=== PATIENT | male | born 1950 | race Caucasian/White ===

== ENCOUNTER 2017-06-12 00:52 | Day surgery (SDC) | payer MEDICARE ==
[~2017-06-12 00:52] MED LIST: ACET325 PO; ALBU90OI; Aspir 8181 MG PO; BENADRYL25 MG PO; FEXPSEER PO; FLUT44OIA; INDO50 PO; LEFL20 PO; LEVSOD50 PO; LISI20 PO; Metformin HCl850 MG PO; Remicade100 MG IV; SOLU-MEDRO40 MG/1 ML IJ; STOOL SOFTENER1 EAC1 PO
== END 2017-06-12 10:44 | disposition home or self-care (01) ==
LOC: ATC 00:52
DX: M45.0 Ankylosing spondylitis of multiple sites in spine (principal); M19.90 Unspecified osteoarthritis, unspecified site; E66.9 Obesity, unspecified; Z88.0 Allergy status to penicillin; Z79.899 Other long term (current) drug therapy
CPT/HCPCS: 96413; 96415; J7050; Q5102-ZB

== ENCOUNTER 2017-08-07 00:16 | Day surgery (SDC) | payer MEDICARE | END 2017-08-07 10:51 | disposition home or self-care (01) | LOC: ATC 00:16 | DX: M45.0 Ankylosing spondylitis of multiple sites in spine (principal); E11.9 Type 2 diabetes mellitus without complications | CPT/HCPCS: 96413; 96415; J7050; Q0163; Q5102-ZB ==

== ENCOUNTER 2017-10-02 00:11 | Day surgery (SDC) | payer MEDICARE ==
[2017-10-02] MEDS ORDERED: INFLECTRA100 MG IV (08:16)
== END 2017-10-02 10:46 | disposition home or self-care (01) ==
LOC: ATC 00:11
DX: M45.0 Ankylosing spondylitis of multiple sites in spine (principal); E11.9 Type 2 diabetes mellitus without complications; E66.9 Obesity, unspecified
CPT/HCPCS: 96413; 96415; J7050; Q5103

== ENCOUNTER 2017-11-27 00:02 | Day surgery (SDC) | payer MEDICARE ==
[~2017-11-27 00:02] MED LIST changes: +INFLECTRA100 MG IV
== END 2017-11-27 11:14 | disposition home or self-care (01) ==
LOC: ATC 00:02
DX: M45.0 Ankylosing spondylitis of multiple sites in spine (principal); E78.5 Hyperlipidemia, unspecified
CPT/HCPCS: J1745; J7050; Q5103

== ENCOUNTER 2018-01-22 07:41 | Day surgery (SDC) | payer MEDICARE | END 2018-01-22 10:12 | disposition home or self-care (01) | LOC: ATC 07:41 | DX: M45.0 Ankylosing spondylitis of multiple sites in spine (principal) | CPT/HCPCS: 96413; 96415; J7050; Q5103 ==

== ENCOUNTER 2018-05-14 01:23 | Day surgery (SDC) | payer MEDICARE | END 2018-05-14 10:22 | disposition home or self-care (01) | LOC: ATC 01:23 | DX: M45.0 Ankylosing spondylitis of multiple sites in spine (principal) | CPT/HCPCS: 96413; J7050; Q5103 ==

== ENCOUNTER 2018-07-12 00:18 | Day surgery (SDC) | payer MEDICARE ==
--- NOTE | 2018-07-12 14:29 | NUR ---
PT REPORTS HE DOES NOT WANT PREMEDS TODAY. REPORTS HE IS HAVING ALLERGY TEST TOMORROW TO RULE OUT NO PCN ALLERGY. WILL UPDATE HIS ALLERGIES NEXT VISIT UPON REPORT OF ALLERGY TEST.
== END 2018-07-12 16:57 | disposition home or self-care (01) ==
LOC: ATC 00:18
DX: M45.0 Ankylosing spondylitis of multiple sites in spine (principal); Z79.1 Long term (current) use of non-steroidal anti-inflammatories (NSAID); M19.90 Unspecified osteoarthritis, unspecified site; E66.9 Obesity, unspecified; J45.909 Unspecified asthma, uncomplicated; D89.9 Disorder involving the immune mechanism, unspecified
CPT/HCPCS: J7050; Q5103

== ENCOUNTER 2018-09-03 00:06 | Day surgery (SDC) | payer MEDICARE | END 2018-09-03 10:28 | disposition home or self-care (01) | LOC: ATC 00:06 | DX: M45.0 Ankylosing spondylitis of multiple sites in spine (principal); M19.90 Unspecified osteoarthritis, unspecified site; E66.9 Obesity, unspecified; Z88.0 Allergy status to penicillin | CPT/HCPCS: 96413; 96415; J7050; Q5103 ==

== ENCOUNTER → 2018-10-06 | Outpatient (CLI) | payer MEDICARE ==
[~2018-10-06] MED LIST changes: +CEPH500 PO; +Norco 7.5-3251 EACH PO
== END | disposition home or self-care (01) ==
LOC: LAB SHORT 08:00 → LAB 08:00 → LAB FUT 09-18 13:45
DX: J47.9 Bronchiectasis, uncomplicated (principal); R05 Cough
CPT/HCPCS: 87070; 87077; 87186; 87205

== ENCOUNTER → 2018-10-07 | Outpatient (CLI) | payer MEDICARE | END | disposition home or self-care (01) | LOC: LAB SHORT 07:20 → LAB 07:20 → EDSTATUS 09-18 08:35 → LAB FUT 09-18 08:35 | DX: J47.9 Bronchiectasis, uncomplicated (principal); R05 Cough | CPT/HCPCS: 87102 ==

== ENCOUNTER 2018-10-29 00:13 | Day surgery (SDC) | payer MEDICARE | END 2018-10-29 11:05 | disposition home or self-care (01) | LOC: ATC 00:13 | DX: M45.0 Ankylosing spondylitis of multiple sites in spine (principal); J45.909 Unspecified asthma, uncomplicated; E66.9 Obesity, unspecified; Z88.0 Allergy status to penicillin; Z79.1 Long term (current) use of non-steroidal anti-inflammatories (NSAID) | CPT/HCPCS: 96413; 96415; A9270; J7050; Q5103 ==

== ENCOUNTER 2019-01-14 02:14 | Day surgery (SDC) | payer MEDICARE | END 2019-01-14 10:55 | disposition home or self-care (01) | LOC: ATC 02:14 | DX: M45.0 Ankylosing spondylitis of multiple sites in spine (principal) | CPT/HCPCS: 96413; 96415; A9270; J7050; Q0163; Q5103 ==

== ENCOUNTER 2019-03-11 00:27 | Day surgery (SDC) | payer MEDICARE | END 2019-03-11 10:27 | disposition home or self-care (01) | LOC: ATC 00:27 | DX: M45.2 Ankylosing spondylitis of cervical region (principal); R91.1 Solitary pulmonary nodule | CPT/HCPCS: 96413; 96415; A9270; J7050; Q0163; Q5103 ==

== ENCOUNTER 2019-05-20 00:49 | Day surgery (SDC) | payer MEDICARE ==
--- NOTE | 2019-05-20 08:44 | NUR ---
PT DECLINED PRE MEDS
== END 2019-05-20 23:24 | disposition home or self-care (01) ==
LOC: ATC 00:49
DX: M45.9 Ankylosing spondylitis of unspecified sites in spine (principal); I10 Essential (primary) hypertension; E11.9 Type 2 diabetes mellitus without complications; J43.9 Emphysema, unspecified; E61.1 Iron deficiency; G47.33 Obstructive sleep apnea (adult) (pediatric); E03.9 Hypothyroidism, unspecified; Z79.51 Long term (current) use of inhaled steroids; Z79.84 Long term (current) use of oral hypoglycemic drugs; Z79.899 Other long term (current) drug therapy; Z88.0 Allergy status to penicillin
CPT/HCPCS: 96413; 96415; J7050; Q5103

== ENCOUNTER 2019-07-15 01:22 | Day surgery (SDC) | payer MEDICARE ==
[~2019-07-15 01:22] MED LIST changes: +Allegra-D 24 H1 EACH PO; -FEXPSEER PO
[2019-07-15] MEDS ORDERED: ALBU2.5V5 INH (09:11)
== END 2019-07-15 10:48 | disposition home or self-care (01) ==
LOC: ATC 01:22
DX: M45.2 Ankylosing spondylitis of cervical region (principal); Z79.84 Long term (current) use of oral hypoglycemic drugs; Z79.899 Other long term (current) drug therapy
CPT/HCPCS: 96413; 96415; J7050; Q5103

== ENCOUNTER 2019-09-09 00:06 | Day surgery (SDC) | payer MEDICARE ==
[~2019-09-09 00:06] MED LIST changes: +ALBU2.5V5 INH
== END 2019-09-09 10:35 | disposition home or self-care (01) ==
LOC: ATC 00:06
DX: M45.0 Ankylosing spondylitis of multiple sites in spine (principal); E11.9 Type 2 diabetes mellitus without complications; M19.012 Primary osteoarthritis, left shoulder; Z79.899 Other long term (current) drug therapy
CPT/HCPCS: 96413; 96415; A9270; J7050; Q0163; Q5103

== ENCOUNTER 2020-01-11 00:35 | Day surgery (SDC) | payer MEDICARE ==
[~2020-01-11 00:35] MED LIST changes: +ALLEGRA ALLERGY60 MG PO; -Allegra-D 24 H1 EACH PO; +EUTHYROX50 MCG PO; -LEVSOD50 PO
== END 2020-01-11 15:55 | disposition home or self-care (01) ==
LOC: ATC 00:35
DX: M45.0 Ankylosing spondylitis of multiple sites in spine (principal); E66.9 Obesity, unspecified; E78.5 Hyperlipidemia, unspecified; M19.012 Primary osteoarthritis, left shoulder; H20.9 Unspecified iridocyclitis; Z79.899 Other long term (current) drug therapy; Z88.6 Allergy status to analgesic agent
CPT/HCPCS: J7050; Q0163; Q5103

== ENCOUNTER 2020-03-12 00:33 | Day surgery (SDC) | payer MEDICARE ==
--- NOTE | 2020-03-12 12:03 | NUR ---
1100 PT AGREED TO HAVE STUDENT NURSE HELP PROVIDE HIS CARE TODAY.
== END 2020-03-12 11:01 | disposition home or self-care (01) ==
LOC: ATC 00:33
DX: M45.0 Ankylosing spondylitis of multiple sites in spine (principal); E66.9 Obesity, unspecified; E78.5 Hyperlipidemia, unspecified; M19.012 Primary osteoarthritis, left shoulder; Z79.1 Long term (current) use of non-steroidal anti-inflammatories (NSAID)
CPT/HCPCS: A9270; J7050; Q0163; Q5103

== ENCOUNTER 2020-05-07 00:13 | Day surgery (SDC) | payer MEDICARE | END 2020-05-07 11:18 | disposition home or self-care (01) | LOC: ATC 00:13 | DX: M45.0 Ankylosing spondylitis of multiple sites in spine (principal); M19.90 Unspecified osteoarthritis, unspecified site; E78.5 Hyperlipidemia, unspecified; E66.9 Obesity, unspecified; Z79.1 Long term (current) use of non-steroidal anti-inflammatories (NSAID); Z79.899 Other long term (current) drug therapy; Z88.0 Allergy status to penicillin; Z79.84 Long term (current) use of oral hypoglycemic drugs | CPT/HCPCS: J7050; Q5103 ==

== ENCOUNTER 2020-07-03 01:44 | Emergency (ER) | payer MEDICARE ==
[~2020-07-03] VITALS: Ht 177.8 cm; Wt 104.3 kg
[2020-07-03] MEDS ORDERED: ASCO500 PO (01:59)
[2020-07-03] MEDS ORDERED: METHOTREXATE2.5 M2 PO (02:00)
[2020-07-03] MEDS ORDERED: MELO7.5 PO (02:01)
[2020-07-03] MEDS ORDERED: METFORMIN ER1000 M2 PO (02:01)
[2020-07-03] MEDS ORDERED: FOLI1 PO (02:01)
[2020-07-03] MEDS ORDERED: VITAMIN D325 MC3 PO (02:02)
[2020-07-03] MEDS ORDERED: Prinivil10 MG PO (02:03)
[2020-07-03] MEDS ORDERED: PRAV20 PO (02:03)
[2020-07-03] MEDS ORDERED: PREG50 PO (02:04)
[2020-07-03] MEDS ORDERED: MONT10T PO (02:04)
[2020-07-03] MEDS ORDERED: MAGNESIUM250 MG PO (02:05)
[2020-07-03] MEDS ORDERED: Micro-K8 MEQ (02:07)
[2020-07-03] MEDS ORDERED: ALBU90OI INH (02:08)
[2020-07-03] MEDS ORDERED: FLOVENT HFA12 GM INH (02:08)
[2020-07-03] MEDS ORDERED: XYZAL5 MG PO (02:10)
[2020-07-03 02:13] LABS: BASOPHILS ABSOLUTE AUTO 0.08 K/mm3 (0.00-0.23); BASOPHILS PERCENT AUTO 1 % (0-2); EOSINOPHILS ABSOLUTE AUTO 0.18 K/mm3 (0.00-0.68); EOSINOPHILS PERCENT AUTO 1 % (0-6); Hematocrit 44.6 % (37.0-53.0); Hemoglobin 15.2 g/dL (13.5-17.5); IMMATURE GRAN ABSOLUTE AUTO 0.09 K/mm3 (0.00-0.10); IMMATURE GRAN PERCENT AUTO 1 % (0-1); LYMPHOCYTES ABSOLUTE AUTO 4.15 K/mm3 (0.84-5.20); LYMPHOCYTES PERCENT AUTO 29 % (21-46); MONOCYTES ABSOLUTE AUTO 1.75 K/mm3 (0.16-1.47); MONOCYTES PERCENT AUTO 12 % (4-13); Mean Corpuscular HGB 32.1 pg (26.0-34.0); Mean Corpuscular HGB Conc 34.1 g/dL (31.5-36.5); Mean Corpuscular Volume 94 fL (80-100); Mean Platelet Volume 10.6 fL (9.1-12.4); NEUTROPHILS ABSOLUTE AUTO 8.16 K/mm3 (1.96-9.15); NEUTROPHILS PERCENT AUTO 57 % (41-73); Platelet Count 226 K/mm3 (150-400); RDW Coefficient Variation 12.8 % (11.7-14.2); RDW Standard Deviation 43.7 fL (35.1-46.3); Red Blood Cell Count 4.73 M/mm3 (4.30-5.90); White Blood Cell Count 14.41 K/mm3 (4.00-11.30)
[2020-07-03 02:26] LABS: Alanine Aminotransfer (ALT/SGP 30 U/L (12-78); Albumin, Blood 3.6 g/dL (3.4-5.0); Albumin/Globulin Ratio 1.1 (0.8-1.8); Alk Phos 91 U/L (50-136); Anion Gap 11 mmol/L (6-16); Aspartate Aminotrans (AST/SGOT 15 U/L (12-37); Bilirubin, Total 0.4 mg/dL (0.1-1.0); Blood Urea Nitrogen 19 mg/dL (8-24); Bun/Creatinine Ratio 22.1 (12.0-20.0); CO2, Blood 23 mmol/L (21-32); Calcium, Blood 9.2 mg/dL (8.5-10.1); Chloride, Blood 105 mmol/L (98-108); Creatinine, Blood 0.86 mg/dL (0.60-1.20); Ethanol (Alcohol), Blood, Med <3 mg/dL; Globulin, Blood 3.3 g/dL (2.2-4.0); Glomerular Filtration Rate >60 (60-); Glucose, Blood 154 mg/dL (70-99); Potassium, Blood 4.2 mmol/L (3.5-5.5); Sodium, Blood 139 mmol/L (136-145); Total Protein, Blood 6.9 g/dL (6.4-8.2)
[2020-07-03 03:35] LABS: Source, Urine Clean Catch
[2020-07-03 03:37] LABS: Appearance, Urine Clear (Clear); Bilirubin, Urine Neg (Neg); Blood, Urine Neg (Neg); Color, Urine Yellow (P-Yellow); Glucose Qualitative, Urine Neg (Neg); Ketones, Urine 1+ (Neg); Leukocyte Esterase, Urine Neg (Neg); Nitrite, Urine Neg (Neg); Protein, Urine Neg (Neg); Urobilinogen, Urine NORM (Normal)
[2020-07-03 03:49] LABS: U Amphetamine Screen Not Detected; U Barbituate Screen Not Detected; U Benzodiazapine Screen Not Detected; U Buprenorphine Screen Not Detected; U Cannabinoids Screen DETECTED; U Cocaine Screen Not Detected; U Methadone Screen Not Detected; U Methamphetamine Screen Not Detected; U Opiates Screen Not Detected; U Oxycodone Screen Not Detected; U Phencyclidine Screen Not Detected; U Propoxyphene Screen Not Detected
== END 2020-07-03 04:19 | disposition home or self-care (01) ==
LOC: ER 01:44
PROVIDERS: Student in an Organized Health Care Education/Training Program
DX: R56.9 Unspecified convulsions (principal); Z79.899 Other long term (current) drug therapy; Z79.84 Long term (current) use of oral hypoglycemic drugs
CPT/HCPCS: 36415; 70450; 80053; 81003; 82947; 85025; 93005; 93010; 99285-25; G0480

== ENCOUNTER 2020-07-06 00:31 | Day surgery (SDC) | payer MEDICARE ==
[~2020-07-06 00:31] MED LIST changes: +ALBU90OI INH; +ASCO500 PO; +FLOVENT HFA12 GM INH; +FOLI1 PO; +MAGNESIUM250 MG PO; +MELO7.5 PO; +METFORMIN ER1000 M2 PO; +METHOTREXATE2.5 M2 PO; +MONT10T PO; +Micro-K8 MEQ; +PRAV20 PO; +PREG50 PO; +Prinivil10 MG PO; +VITAMIN D325 MC3 PO; +XYZAL5 MG PO
== END 2020-07-06 10:32 | disposition home or self-care (01) ==
LOC: ATC 00:31
DX: M45.0 Ankylosing spondylitis of multiple sites in spine (principal); E78.5 Hyperlipidemia, unspecified; D84.9 Immunodeficiency, unspecified; M19.012 Primary osteoarthritis, left shoulder; E66.9 Obesity, unspecified; Z88.0 Allergy status to penicillin
CPT/HCPCS: 96413; 96415; J7050; Q5103

== ENCOUNTER 2020-08-31 00:15 | Day surgery (SDC) | payer MEDICARE ==
[2020-08-31] MEDS ORDERED: ROWEEPRA PO (09:34)
== END 2020-08-31 10:43 | disposition home or self-care (01) ==
LOC: ATC 00:15
DX: M45.0 Ankylosing spondylitis of multiple sites in spine (principal); E78.5 Hyperlipidemia, unspecified; E66.9 Obesity, unspecified; M19.012 Primary osteoarthritis, left shoulder; Z79.899 Other long term (current) drug therapy; Z88.0 Allergy status to penicillin
CPT/HCPCS: J7050; Q5103

== ENCOUNTER 2021-03-18 04:32 | Day surgery (SDC) | payer MEDICARE ==
[~2021-03-18 04:32] MED LIST changes: +ROWEEPRA PO
== END 2021-03-18 10:47 | disposition home or self-care (01) ==
LOC: ATC 04:32
DX: M45.0 Ankylosing spondylitis of multiple sites in spine (principal); E78.5 Hyperlipidemia, unspecified
CPT/HCPCS: 96413; 96415; A9270; J7050; Q5103

== ENCOUNTER 2021-05-13 01:29 | Day surgery (SDC) | payer MEDICARE ==
--- NOTE | 2021-05-13 08:00 | NUR ---
PT DECLINES PRE MEDS TODAY.
== END 2021-05-13 10:41 | disposition home or self-care (01) ==
LOC: ATC 01:29
DX: M45.0 Ankylosing spondylitis of multiple sites in spine (principal); E78.5 Hyperlipidemia, unspecified
CPT/HCPCS: J7050; Q5103

== ENCOUNTER 2021-07-16 05:34 | Day surgery (SDC) | payer MEDICARE ==
--- NOTE | 2021-07-16 08:55 | NUR ---
PT REFUSED PRE-MEDICATIONS.
== END 2021-07-16 11:46 | disposition home or self-care (01) ==
LOC: ATC 05:34
DX: M45.0 Ankylosing spondylitis of multiple sites in spine (principal); Z88.0 Allergy status to penicillin
CPT/HCPCS: J7050; Q5103

== ENCOUNTER 2021-09-10 01:21 | Day surgery (SDC) | payer MEDICARE ==
[~2021-09-10] VITALS: Wt 119.9 kg
== END 2021-09-10 11:15 | disposition home or self-care (01) ==
LOC: ATC 01:21
DX: M45.9 Ankylosing spondylitis of unspecified sites in spine (principal); E78.5 Hyperlipidemia, unspecified; D84.9 Immunodeficiency, unspecified; Z79.899 Other long term (current) drug therapy
CPT/HCPCS: J7050; Q5103

== ENCOUNTER 2021-09-28 09:13 | Emergency (ER) | payer MEDICARE ==
[~2021-09-28] VITALS: Ht 177.8 cm; Wt 113.4 kg
[2021-09-28] MEDS ORDERED: RENFLEXIS100 M1 (09:33)
[2021-09-28] MEDS ORDERED: ACYC800 PO (09:39)
[2021-09-28] MEDS ORDERED: Prednisone20 MG PO (09:39)
[2021-09-28] MEDS ORDERED: HYDR1TAB94 PO (09:39)
== END 2021-09-28 09:47 | disposition home or self-care (01) ==
LOC: ER 09:13
DX: B02.9 Zoster without complications (principal); Z79.899 Other long term (current) drug therapy; Z79.84 Long term (current) use of oral hypoglycemic drugs; Z79.52 Long term (current) use of systemic steroids
CPT/HCPCS: 99282

== ENCOUNTER 2021-11-05 05:13 | Day surgery (SDC) | payer MEDICARE ==
[~2021-11-05] VITALS: Wt 119.8 kg
[~2021-11-05 05:13] MED LIST changes: +ACYC800 PO; +HYDR1TAB94 PO; +Prednisone20 MG PO; +RENFLEXIS100 M1
[2021-11-05] MEDS ORDERED: INFLECTRA100 MG IV (09:08)
== END 2021-11-05 10:17 | disposition home or self-care (01) ==
LOC: ATC 05:13
DX: M45.9 Ankylosing spondylitis of unspecified sites in spine (principal); E78.5 Hyperlipidemia, unspecified; Z88.0 Allergy status to penicillin
CPT/HCPCS: J7050; Q5103

== ENCOUNTER 2022-03-05 02:28 | Day surgery (SDC) | payer MEDICARE | END 2022-03-05 10:25 | disposition home or self-care (01) | LOC: ATC 02:28 | DX: M45.9 Ankylosing spondylitis of unspecified sites in spine (principal); E11.9 Type 2 diabetes mellitus without complications; Z88.0 Allergy status to penicillin | CPT/HCPCS: 96413; 96415; J7050; Q5103 ==

== ENCOUNTER 2022-07-03 01:30 | Day surgery (SDC) | payer MEDICARE ==
[~2022-07-03] VITALS: Wt 119.9 kg
== END 2022-07-03 10:06 | disposition home or self-care (01) ==
LOC: ATC 01:30
DX: M45.9 Ankylosing spondylitis of unspecified sites in spine (principal); E11.9 Type 2 diabetes mellitus without complications
CPT/HCPCS: 96413; 96415; J7050; Q5103

== ENCOUNTER 2022-08-28 00:58 | Day surgery (SDC) | payer MEDICARE ==
[2022-08-28 07:59] VITALS: BP 163/87
== END 2022-08-28 10:29 | disposition home or self-care (01) ==
LOC: ATC 00:58
DX: M45.0 Ankylosing spondylitis of multiple sites in spine (principal)
CPT/HCPCS: 96413; 96415; J7050; Q5103

== ENCOUNTER 2022-10-07 17:04 | Emergency (ER) | payer MEDICARE ==
[~2022-10-07] VITALS: Ht 172.7 cm; Wt 113.8 kg
[~2022-10-07 17:04] MED LIST changes: +LEVE500 PO
[2022-10-07 17:48] LABS: Hematocrit 46.7 % (37.0-53.0); Hemoglobin 16.1 g/dL (13.5-17.5); Mean Corpuscular HGB Conc 34.5 g/dL (31.5-36.5); Mean Corpuscular Volume 96 fL (80-100); Mean Platelet Volume 10.9 fL (9.1-12.4); Platelet Count 266 K/mm3 (150-400); RDW Standard Deviation 45.1 fL (35.1-46.3); Red Blood Cell Count 4.88 M/mm3 (4.30-5.90); White Blood Cell Count 14.04 K/mm3 (4.00-11.30)
[2022-10-07 18:08] LABS: BASOPHILS PERCENT MAN 0 % (0-2); EOSINOPHILS PERCENT MAN 0 % (0-6); LYMPHOCYTES % ATYPICAL MANUAL 3 % (0-0); LYMPHOCYTES ABSOLUTE MAN 4.49 K/mm3 (0.84-5.20); LYMPHOCYTES PERCENT MAN 29 % (21-46); MONOCYTES PERCENT MAN 10 % (4-13); NEUTROPHILS ABSOLUTE MAN 8.14 K/mm3 (1.96-9.15); SEG NEUTROPHILS PERCENT MAN 58 % (41-73); TOTAL CELLS COUNTED 100
[2022-10-07 18:22] LABS: Albumin, Blood 3.9 g/dL (3.4-5.0); Albumin/Globulin Ratio 1.1 (0.8-1.8); Bilirubin, Total 0.6 mg/dL (0.1-1.0); Bun/Creatinine Ratio 22.6 (12.0-20.0); Calcium, Blood 9.8 mg/dL (8.5-10.1); Creatinine, Blood 0.93 mg/dL (0.60-1.20); Globulin, Blood 3.6 g/dL (2.2-4.0); Potassium, Blood 4.5 mmol/L (3.5-5.5); Total Protein, Blood 7.5 g/dL (6.4-8.2)
[2022-10-07 22:45] VITALS: BP 129/78
== END 2022-10-07 22:55 | disposition home or self-care (01) ==
LOC: ER 17:04
PROVIDERS: Physician Assistant
DX: G45.9 Transient cerebral ischemic attack, unspecified (principal); I10 Essential (primary) hypertension; G40.909 Epilepsy, unspecified, not intractable, without status epilepticus; E03.9 Hypothyroidism, unspecified; Z79.899 Other long term (current) drug therapy
CPT/HCPCS: 70450; 70496; 70498; 80053; 85025; Q9967

== ENCOUNTER 2022-10-23 03:01 | Day surgery (SDC) | payer MEDICARE ==
[~2022-10-23] VITALS: Wt 119.3 kg
[2022-10-23 07:58] VITALS: BP 141/81
== END 2022-10-23 10:22 | disposition home or self-care (01) ==
LOC: ATC 03:01
DX: M45.0 Ankylosing spondylitis of multiple sites in spine (principal); E11.9 Type 2 diabetes mellitus without complications
CPT/HCPCS: 96413; 96415; J7050; Q5103

== ENCOUNTER 2023-01-31 15:26 | Emergency (ER) | payer MEDICARE ==
[~2023-01-31] VITALS: Ht 177.8 cm; Wt 111.6 kg
[~2023-01-31 15:26] MED LIST changes: +TAMS.4ER PO
[2023-01-31 16:19] LABS: Albumin, Blood 3.7 g/dL (3.4-5.0); Albumin/Globulin Ratio 1.1 (0.8-1.8); Bilirubin, Total 0.4 mg/dL (0.1-1.0); Calcium, Blood 9.8 mg/dL (8.5-10.1); Creatinine, Blood 0.86 mg/dL (0.60-1.20); Globulin, Blood 3.5 g/dL (2.2-4.0); Potassium, Blood 4.4 mmol/L (3.5-5.5); Total Protein, Blood 7.2 g/dL (6.4-8.2)
[2023-01-31 16:21] LABS: BASOPHILS ABSOLUTE AUTO 0.06 K/mm3 (0.00-0.23); BASOPHILS PERCENT AUTO 1 % (0-2); EOSINOPHILS ABSOLUTE AUTO 0.11 K/mm3 (0.00-0.68); EOSINOPHILS PERCENT AUTO 1 % (0-6); Hemoglobin 15.3 g/dL (13.5-17.5); IMMATURE GRAN ABSOLUTE AUTO 0.04 K/mm3 (0.00-0.10); IMMATURE GRAN PERCENT AUTO 0 % (0-1); LYMPHOCYTES ABSOLUTE AUTO 2.74 K/mm3 (0.84-5.20); LYMPHOCYTES PERCENT AUTO 22 % (21-46); MONOCYTES ABSOLUTE AUTO 1.48 K/mm3 (0.16-1.47); MONOCYTES PERCENT AUTO 12 % (4-13); Mean Corpuscular HGB 32.4 pg (26.0-34.0); Mean Corpuscular Volume 95 fL (80-100); NEUTROPHILS ABSOLUTE AUTO 8.31 K/mm3 (1.96-9.15); NEUTROPHILS PERCENT AUTO 65 % (41-73); Platelet Count 255 K/mm3 (150-400); Red Blood Cell Count 4.72 M/mm3 (4.30-5.90); White Blood Cell Count 12.74 K/mm3 (4.00-11.30)
[2023-01-31 16:38] LABS: D-Dimer, Quantitative 0.34 mg/L FEU (0.00-0.52); International Normalized Ratio 1.03; Prothrombin Time Results 10.8 Sec (9.7-11.5)
[2023-01-31] MEDS ORDERED: RENFLEXIS100 M1 (16:41)
[2023-01-31] MEDS ORDERED: BREO ELLIPTA 11 EAC1 INH (16:42)
[2023-01-31 18:59] VITALS: BP 108/70
== END 2023-01-31 19:04 | disposition home or self-care (01) ==
LOC: ER 15:26
PROVIDERS: Physician Assistant
DX: R00.2 Palpitations (principal); R00.0 Tachycardia, unspecified; I11.0 Hypertensive heart disease with heart failure; I50.30 Unspecified diastolic (congestive) heart failure; J81.1 Chronic pulmonary edema; D72.829 Elevated white blood cell count, unspecified; I25.10 Atherosclerotic heart disease of native coronary artery without angina pectoris; E03.9 Hypothyroidism, unspecified; Z79.890 Hormone replacement therapy; Z79.899 Other long term (current) drug therapy
CPT/HCPCS: 71046; 80053; 83735; 83880; 84443; 84484; 85025; 85379; 85610; 93005; 93010; 96374; 99285-25; J1940

== ENCOUNTER 2023-02-17 02:37 | Day surgery (SDC) | payer MEDICARE ==
[~2023-02-17 02:37] MED LIST changes: +BREO ELLIPTA 11 EAC1 INH
[2023-02-17 07:59] VITALS: BP 139/78
--- NOTE | 2023-02-17 10:42 | NUR ---
STOP TIME 1038
== END 2023-02-17 10:38 | disposition home or self-care (01) ==
LOC: ATC 02:37
DX: M45.0 Ankylosing spondylitis of multiple sites in spine (principal)
CPT/HCPCS: 96413; 96415; J7050; Q5103

== ENCOUNTER 2023-04-13 04:11 | Day surgery (SDC) | payer MEDICARE ==
[2023-04-13 08:07] VITALS: BP 145/85
--- NOTE | 2023-04-13 08:47 | NUR ---
PT STATES HE DOESN'T TAKE PRE MEDS.
== END 2023-04-13 10:44 | disposition home or self-care (01) ==
LOC: ATC 04:11
DX: M45.0 Ankylosing spondylitis of multiple sites in spine (principal)
CPT/HCPCS: 96413; 96415; J7050; Q5103

== ENCOUNTER 2023-06-10 02:46 | Day surgery (SDC) | payer MEDICARE ==
[2023-06-10 07:55] VITALS: BP 167/81
== END 2023-06-10 10:29 | disposition home or self-care (01) ==
LOC: ATC 02:46
DX: M45.0 Ankylosing spondylitis of multiple sites in spine (principal); J47.9 Bronchiectasis, uncomplicated; R56.9 Unspecified convulsions; H26.9 Unspecified cataract
CPT/HCPCS: 96413; 96415; J7050; Q5103

== ENCOUNTER 2024-02-08 00:28 | Emergency (ER) | payer MEDICARE ==
[~2024-02-08] VITALS: Ht 175.3 cm; Wt 90.7 kg
[~2024-02-08 00:28] MED LIST changes: +GLUCOPHAGE1000 M1 PO; +MAGNESIUM CITR125 MG PO; -MAGNESIUM250 MG PO; -METFORMIN ER1000 M2 PO; +VITAMIN D32000 UNI1 PO; -VITAMIN D325 MC3 PO
[2024-02-08 01:22] LABS: Source, Urine Foley catheter
[2024-02-08 01:24] LABS: BASOPHILS ABSOLUTE AUTO 0.05 K/mm3 (0.00-0.23); BASOPHILS PERCENT AUTO 0 % (0-2); EOSINOPHILS ABSOLUTE AUTO 0.01 K/mm3 (0.00-0.68); EOSINOPHILS PERCENT AUTO 0 % (0-6); Hematocrit 43.4 % (37.0-53.0); IMMATURE GRAN ABSOLUTE AUTO 0.12 K/mm3 (0.00-0.10); IMMATURE GRAN PERCENT AUTO 1 % (0-1); LYMPHOCYTES ABSOLUTE AUTO 1.41 K/mm3 (0.84-5.20); LYMPHOCYTES PERCENT AUTO 6 % (21-46); MONOCYTES ABSOLUTE AUTO 1.76 K/mm3 (0.16-1.47); MONOCYTES PERCENT AUTO 8 % (4-13); Mean Corpuscular HGB 32.8 pg (26.0-34.0); Mean Corpuscular HGB Conc 34.6 g/dL (31.5-36.5); Mean Corpuscular Volume 95 fL (80-100); Mean Platelet Volume 10.1 fL (9.1-12.4); NEUTROPHILS ABSOLUTE AUTO 19.29 K/mm3 (1.96-9.15); NEUTROPHILS PERCENT AUTO 85 % (41-73); Platelet Count 298 K/mm3 (150-400); RDW Coefficient Variation 13.2 % (11.7-14.2); Red Blood Cell Count 4.58 M/mm3 (4.30-5.90); White Blood Cell Count 22.64 K/mm3 (4.00-11.30)
[2024-02-08 01:26] LABS: Bilirubin, Urine Neg (Neg); Blood, Urine 1+ (Neg); Glucose Qualitative, Urine 1+ (Neg); Ketones, Urine 1+ (Neg); Leukocyte Esterase, Urine Neg (Neg); Nitrite, Urine Neg (Neg); Protein, Urine Neg (Neg); Specific Gravity, Urine 1.025 (1.003-1.022); Urobilinogen, Urine NORM (Normal)
[2024-02-08 01:36] LABS: Appearance, Urine Clear (Clear); Color, Urine Yellow (P-Yellow)
[2024-02-08 01:43] LABS: Albumin, Blood 3.7 g/dL (3.4-5.0); Albumin/Globulin Ratio 0.9 (0.8-1.8); Bilirubin, Total 0.8 mg/dL (0.1-1.0); Bun/Creatinine Ratio 28.1 (12.0-20.0); Calcium, Blood 10.2 mg/dL (8.5-10.1); Creatinine, Blood 0.71 mg/dL (0.60-1.20); Globulin, Blood 3.9 g/dL (2.2-4.0); Potassium, Blood 4.6 mmol/L (3.5-5.5); Total Protein, Blood 7.6 g/dL (6.4-8.2)
[2024-02-08 01:49] LABS: Bacteria Not Seen /hpf; Squamous Epithelial Cells Not Seen /hpf (Few); White Blood Cells, Urine Not Seen /hpf (0-5)
[2024-02-08] MEDS ORDERED: TAMS.4ER PO (03:51)
[2024-02-08 04:00] VITALS: BP 130/77
[2024-02-16] MEDS ORDERED: ROSUVASTATIN CA20 MG PO (11:07)
[2024-02-16] MEDS ORDERED: DOCU100 PO (11:14)
[2024-02-16] MEDS ORDERED: VITAMIN D350 MC3 PO (13:00)
[2024-02-16] MEDS ORDERED: PREG50 PO (13:10)
[2024-02-16] MEDS ORDERED: PYRI100 PO (13:11)
== END 2024-02-08 04:20 | disposition home or self-care (01) ==
LOC: ER 00:28
PROVIDERS: Emergency Medicine
DX: R33.9 Retention of urine, unspecified (principal); E03.9 Hypothyroidism, unspecified; I10 Essential (primary) hypertension; E78.5 Hyperlipidemia, unspecified; Z79.51 Long term (current) use of inhaled steroids; Z79.84 Long term (current) use of oral hypoglycemic drugs; Z79.899 Other long term (current) drug therapy
CPT/HCPCS: 51702; 51798; 80053; 81001; 85025; 99283-25

== ENCOUNTER 2024-02-15 04:28 | Emergency (ER) | payer MEDICARE ==
[~2024-02-15] VITALS: Ht 172.7 cm; Wt 108.9 kg
[2024-02-15 04:43] VITALS: BP 119/97
[2024-02-15 05:16] LABS: Source, Urine Foley catheter
[2024-02-15 05:32] LABS: Bilirubin, Urine Neg (Neg); Blood, Urine 5+ (Neg); Glucose Qualitative, Urine Neg (Neg); Ketones, Urine Neg (Neg); Leukocyte Esterase, Urine 1+ (Neg); Nitrite, Urine Pos (Neg); Protein, Urine 4+ (Neg); Specific Gravity, Urine 1.015 (1.003-1.022); Urobilinogen, Urine NORM (Normal)
[2024-02-15] MEDS ORDERED: Dexamethasone Sod Phos 10 MG/ML 1ML VIAL PO ONE (05:35)
[2024-02-15 05:36] LABS: Appearance, Urine Turbid (Clear); Color, Urine Red (P-Yellow); Red Blood Cells, Urine TNTC /hpf (0-2)
[2024-02-15 05:37] LABS: Bacteria Many /hpf; Squamous Epithelial Cells Not Seen /hpf (Few)
[2024-02-15] MEDS ORDERED: Cephalexin Monohydrate 250 MG/5 ML UD BTL PO ONE (05:40)
[2024-02-15] MEDS ORDERED: CEPH500 PO (05:51)
[2024-02-16] MEDS ORDERED: ROSUVASTATIN CA20 MG PO ×2 (11:07)
[2024-02-16] MEDS ORDERED: DOCU100 PO ×2 (11:14)
[2024-02-16] MEDS ORDERED: VITAMIN D350 MC3 PO ×2 (13:00)
[2024-02-16] MEDS ORDERED: PREG50 PO ×2 (13:10)
[2024-02-16] MEDS ORDERED: PYRI100 PO ×2 (13:11)
== END 2024-02-15 06:10 | disposition home or self-care (01) ==
LOC: ER 04:28
PROVIDERS: Student in an Organized Health Care Education/Training Program
DX: T83.091A Other mechanical complication of indwelling urethral catheter, initial encounter (principal); R34 Anuria and oliguria; Y84.6 Urinary catheterization as the cause of abnormal reaction of the patient, or of later complication, without mention of misadventure at the time of the procedure; N39.0 Urinary tract infection, site not specified; I10 Essential (primary) hypertension; E03.9 Hypothyroidism, unspecified; E78.5 Hyperlipidemia, unspecified; G40.909 Epilepsy, unspecified, not intractable, without status epilepticus; Z79.899 Other long term (current) drug therapy; Z79.890 Hormone replacement therapy; Z79.84 Long term (current) use of oral hypoglycemic drugs
CPT/HCPCS: 51702; 81001; 87077; 87086; 87186; 99283; A9270

== ENCOUNTER 2024-02-15 22:24 | Inpatient (IN) | payer MEDICARE ==
[~2024-02-15] VITALS: Ht 177.8 cm; Wt 106.6 kg
[2024-02-15 23:21] LABS: Hematocrit 42.2 % (37.0-53.0); Hemoglobin 14.4 g/dL (13.5-17.5); Mean Corpuscular HGB Conc 34.1 g/dL (31.5-36.5); Mean Corpuscular Volume 97 fL (80-100); Mean Platelet Volume 10.1 fL (9.1-12.4); Platelet Count 309 K/mm3 (150-400); RDW Coefficient Variation 13.2 % (11.7-14.2); RDW Standard Deviation 46.5 fL (35.1-46.3); Red Blood Cell Count 4.36 M/mm3 (4.30-5.90); White Blood Cell Count 35.12 K/mm3 (4.00-11.30)
[2024-02-15 23:49] LABS: BAND PERCENT MAN 8 % (0-8); BASOPHILS PERCENT MAN 0 % (0-2); EOSINOPHILS PERCENT MAN 0 % (0-6); LYMPHOCYTES PERCENT MAN 6 % (21-46); MONOCYTES ABSOLUTE MAN 3.16 K/mm3 (0.16-1.47); MONOCYTES PERCENT MAN 9 % (4-13); NEUTROPHILS ABSOLUTE MAN 29.85 K/mm3 (1.96-9.15); SEG NEUTROPHILS PERCENT MAN 77 % (41-73); TOTAL CELLS COUNTED 100
[2024-02-15 23:58] LABS: Albumin, Blood 3.5 g/dL (3.4-5.0); Albumin/Globulin Ratio 0.9 (0.8-1.8); Bun/Creatinine Ratio 23.7 (12.0-20.0); Calcium, Blood 9.7 mg/dL (8.5-10.1); Creatinine, Blood 0.93 mg/dL (0.60-1.20); Potassium, Blood 4.3 mmol/L (3.5-5.5); Total Protein, Blood 7.5 g/dL (6.4-8.2)
[2024-02-16] MEDS ORDERED: FentaNYL Citrate 50 MCG/ML 2 ML Injection IV ONE (00:20)
[2024-02-16 00:47] LABS: Source, Urine Foley catheter
[2024-02-16 00:53] LABS: Bilirubin, Urine Neg (Neg); Blood, Urine 4+ (Neg); Glucose Qualitative, Urine Neg (Neg); Ketones, Urine 1+ (Neg); Leukocyte Esterase, Urine Neg (Neg); Nitrite, Urine Neg (Neg); Protein, Urine 4+ (Neg); Urobilinogen, Urine NORM (Normal)
[2024-02-16 01:02] LABS: Appearance, Urine Bloody (Clear); Color, Urine Red (P-Yellow)
[2024-02-16 01:07] LABS: Bacteria Rare /hpf; Red Blood Cells, Urine TNTC /hpf (0-2); Squamous Epithelial Cells Not Seen /hpf (Few)
[2024-02-16 01:47] LABS: International Normalized Ratio 1.04; Prothrombin Time Results 11.1 Sec (9.7-11.5)
[2024-02-16] MEDS ORDERED: NS 1,000 ML IV SCH ×2 (02:40→05:00)
[2024-02-16] MEDS ORDERED: FLU VACC TS2024-25(6MOS UP)/PF 45 MCG/0.5 ML SYRINGE IM SCH (04:30)
[2024-02-16] MEDS ORDERED: Acetaminophen 325 MG TABLET PO PRN (04:30)
[2024-02-16 06:19] LABS: BASOPHILS ABSOLUTE AUTO 0.05 K/mm3 (0.00-0.23); BASOPHILS PERCENT AUTO 0 % (0-2); EOSINOPHILS PERCENT AUTO 0 % (0-6); Hematocrit 36.5 % (37.0-53.0); Hemoglobin 12.5 g/dL (13.5-17.5); IMMATURE GRAN PERCENT AUTO 1 % (0-1); LYMPHOCYTES ABSOLUTE AUTO 1.72 K/mm3 (0.84-5.20); LYMPHOCYTES PERCENT AUTO 6 % (21-46); MONOCYTES ABSOLUTE AUTO 2.54 K/mm3 (0.16-1.47); MONOCYTES PERCENT AUTO 8 % (4-13); Mean Corpuscular HGB Conc 34.2 g/dL (31.5-36.5); Mean Corpuscular Volume 96 fL (80-100); Mean Platelet Volume 9.9 fL (9.1-12.4); NEUTROPHILS ABSOLUTE AUTO 25.51 K/mm3 (1.96-9.15); NEUTROPHILS PERCENT AUTO 85 % (41-73); Platelet Count 261 K/mm3 (150-400); RDW Coefficient Variation 13.2 % (11.7-14.2); RDW Standard Deviation 46.5 fL (35.1-46.3); Red Blood Cell Count 3.79 M/mm3 (4.30-5.90); White Blood Cell Count 30.12 K/mm3 (4.00-11.30)
[2024-02-16 06:40] LABS: Bun/Creatinine Ratio 26.4 (12.0-20.0); Calcium, Blood 9.5 mg/dL (8.5-10.1); Creatinine, Blood 0.87 mg/dL (0.60-1.20); Potassium, Blood 4.3 mmol/L (3.5-5.5)
[2024-02-16 06:45] VITALS: BP 125/78
[2024-02-16 07:30] VITALS: BP 146/85
[2024-02-16] MEDS ORDERED: Insulin Human Lispro 100 Units/ML 3ML Syringe SC SCH (07:30)
[2024-02-16] MEDS ORDERED: CefTRIAXone Sodium 1,000 MG in NS 100 ML IV SCH (09:00)
--- NOTE | 2024-02-16 09:16 | NUR ---
RESIDENT AND MED STUDENT ROUNDED THIS AM. DISCUSSED CONCERNS WITH RESIDENT. NOTIFIED OF NEED FOR IV ABX. ASKED ABOUT CONTINUED IV FLUID ORDERS. ALSO DISCUSSED BLADDER DISCOMFORT, NEED FOR INTERMITTENT BLADDER IRRIGATION ORDER AND POSSIBLE CHEST XRAY. NOTIFIED THAT CATH WAS MANUALLY FLUSHED AT 0745. PER MED STUDENT SHE WILL DISCUSS THESE CONCERNS WITH THE MEDICAL TEAM AND ORDERS WILL BE PLACED.
[2024-02-16] MEDS ORDERED: Tamsulosin HCl 0.4 MG Cap PO SCH (11:00)
[2024-02-16] MEDS ORDERED: ROSUVASTATIN CA20 MG PO ×2 (11:07)
[2024-02-16] MEDS ORDERED: DOCU100 PO ×2 (11:14)
[2024-02-16] MEDS ORDERED: VITAMIN D350 MC3 PO ×2 (13:00)
[2024-02-16] MEDS ORDERED: PREG50 PO ×2 (13:10)
[2024-02-16] MEDS ORDERED: PYRI100 PO ×2 (13:11)
[2024-02-16] MEDS ORDERED: Calcium Carbonate 500 MG Tab Chew PO PRN (14:05)
[2024-02-16] MEDS ORDERED: Mometasone/Formoterol MDI 100/5 mcg 13 GM INH SCH (14:15)
[2024-02-16 16:29] VITALS: BP 131/81
[2024-02-16] MEDS ORDERED: Omeprazole 20 MG CapCR PO SCH (16:30)
--- NOTE | 2024-02-16 16:38 | NUR ---
NURSING PROGRESS NOTE PT REFUSED BREAKFAST TRAY C/O HEARTBURN. PT REFUSED LUNCH TRAY C/O HEARTBURN/NAUSEA. PT STATES HE TAKES 3 ANTACIDS AT HOME WHEN HE HAS HEARTBURN, SARA VAUGHAN OBTAINED ORDER FOR PRILOSEC AND ANTACIDS. PT REPORTS HEARTBURN IS BETTER 15 MINUTES AFTER TAKING ORAL ANTACIDS. PT IS STAND BY ASSIST FOR LINES AND TUBES.
[2024-02-16] MEDS ORDERED: MetFORMIN HCl 500 mg PO SCH (17:00)
--- NOTE | 2024-02-16 19:07 | NUR ---
SHIFT SUMMARY PT WITH CBI, BLOODY COLOR, FEW CLOTS. PT A&O X4. PT C/O HEARTBURN IN AM AND AFTER LUNCH. PT STATES HEARTBURN RESOLVED WITH ANTACID AND PRILOSEC. PT ON RA. INDEPENDENT AMBULATION WITH 1 ASSIST FOR LINES/TUBES. PT VOMITED 300 ML OF EMESIS AT 1300. PT SPOUSE AT BEDSIDE MOST OF DAY. PT REFUSED BREAKFAST AND LUNCH TRAYS D/T HEARTBURN, REFUSED DINNER TRAY BUT DID EAT APPLE SLICES. PT WITH NO STATED NEEDS AT THIS TIME. BED IN LOWEST POSITION WITH CALL LIGHT IN REACH. PT WITH PERSONAL CELL PHONE WITHIN REACH.
[2024-02-16 19:37] VITALS: BP 125/82
--- NOTE | 2024-02-16 20:00 | NUR ---
SHIFT SUMMARY PT HAD CONTINUOUS BLADDER IRRIGATION T/O THE DAY. URINE RANGED FROM LIGHT PINK TO DARK RED WITH CLOTS. PT REQUIRED MANUAL IRRIGATION X 3 THIS SHIFT TO REMOVE CLOTS. PT HAS DECLINED MEALS R/T ACID REFLUX, PRILOSEC AND TUMS GIVEN PRIOR TO DINNER PT STILL HAD MINIMAL INTAKE AT DINNER. PT HAS HAD BM'S X2. PT IS SBA FOR HELP WITH LINES AND TUBES IN THE ROOM. PT USES CALL LIGHT APPROPRIATELY. BEDSIDE REPORT GIVEN TO REGLA RUIZ.
[2024-02-16] MEDS ORDERED: Pregabalin 50 MG Capsule PO SCH (21:00)
[2024-02-16] MEDS ORDERED: Miconazole Nitrate 2% 85 GM PWD TOP SCH (21:00)
[2024-02-16] MEDS ORDERED: Montelukast Sodium 10 MG Tab PO SCH (21:00)
[2024-02-16] MEDS ORDERED: PyridOXINE HCL 50 MG TAB PO SCH (21:00)
[2024-02-16] MEDS ORDERED: Folic Acid 1 MG TAB PO SCH (21:00)
[2024-02-16] MEDS ORDERED: Rosuvastatin Calcium 10 MG Tab PO SCH (21:00)
[2024-02-16] MEDS ORDERED: LevETIRAcetam 500 MG Tab PO SCH (21:00)
[2024-02-17 04:33] VITALS: BP 136/95
[2024-02-17 05:08] LABS: BASOPHILS ABSOLUTE AUTO 0.06 K/mm3 (0.00-0.23); BASOPHILS PERCENT AUTO 0 % (0-2); EOSINOPHILS ABSOLUTE AUTO 0.07 K/mm3 (0.00-0.68); EOSINOPHILS PERCENT AUTO 0 % (0-6); Hematocrit 34.9 % (37.0-53.0); Hemoglobin 11.9 g/dL (13.5-17.5); IMMATURE GRAN ABSOLUTE AUTO 0.15 K/mm3 (0.00-0.10); IMMATURE GRAN PERCENT AUTO 1 % (0-1); LYMPHOCYTES ABSOLUTE AUTO 2.63 K/mm3 (0.84-5.20); LYMPHOCYTES PERCENT AUTO 13 % (21-46); MONOCYTES ABSOLUTE AUTO 1.65 K/mm3 (0.16-1.47); MONOCYTES PERCENT AUTO 8 % (4-13); Mean Corpuscular HGB Conc 34.1 g/dL (31.5-36.5); Mean Corpuscular Volume 97 fL (80-100); Mean Platelet Volume 10.2 fL (9.1-12.4); NEUTROPHILS ABSOLUTE AUTO 16.55 K/mm3 (1.96-9.15); NEUTROPHILS PERCENT AUTO 78 % (41-73); Platelet Count 272 K/mm3 (150-400); RDW Coefficient Variation 13.2 % (11.7-14.2); RDW Standard Deviation 46.4 fL (35.1-46.3); Red Blood Cell Count 3.61 M/mm3 (4.30-5.90); White Blood Cell Count 21.11 K/mm3 (4.00-11.30)
[2024-02-17 05:35] LABS: Bun/Creatinine Ratio 24.9 (12.0-20.0); Calcium, Blood 9.4 mg/dL (8.5-10.1); Creatinine, Blood 0.72 mg/dL (0.60-1.20); Potassium, Blood 4.1 mmol/L (3.5-5.5)
[2024-02-17] MEDS ORDERED: Levothyroxine Sodium 0.05 MG Tab PO SCH (06:00)
--- NOTE | 2024-02-17 06:46 | NUR ---
SHIFT SUMMARY S/P HEMATURIA c CONT BLADDER IRRIGATION. NO ACUTE CHANGES OVERNIGHT. VSS, SLIGHTLY TACHY c MOIST OCCASIONAL COUGH. TOLERATING DIET. PT USED 5 BAGS TOTAL FOR IRRIGATION OVERNIGHT. URINE REMAINS DARK RED c BLOD CLOTS. PT CALLS c DISCOMFORT FOR MANUAL IRRIGATION. PT REPORTS PAIN TOLERABLE, MEDICATED PER EMAR. CALL LIGHT IN REACH, BED IN LOWEST POSITION, REPORT GIVEN TO DAY RN.
[2024-02-17 07:13] VITALS: BP 129/91
[2024-02-17] MEDS ORDERED: Ascorbic Acid 500 MG Tab PO SCH (09:00)
[2024-02-17] MEDS ORDERED: MAGNESIUM CITRATE 500 MG PO SCH (09:00)
[2024-02-17] MEDS ORDERED: Cholecalciferol 1000 Unit Tablet (=25MCG) PO SCH (09:00)
--- NOTE | 2024-02-17 12:05 | NUR ---
ASSUMED CARE OF PT AT 0700 THIS AM. PT STATES HE HAS NO COMPLAINTS THIS AM AND IS FEELING BETTER THAN YESTERDAY. CONTINUOUS BLADDER IRRIGATION CONTINES TO RUN, FITZGERALD OUTPUT IS DARK PINK IN COLOR, NO BLOOD CLOTS NOTED. PT'S AT BEDSIDE AND PRESENT FOR RESIDENT ROUNDS WITH ATTENDING DR KURTZ. PLAN IS FOR MDs TO CONTACT [facility] (PT IS ALREADY ESTABLISHED) FOR RECCOMENDATIONS AND POST HOSPITALIZATION APPT DENIS. PT STATES HE HAS NO NEEDS, SITTING UP AT BEDSIDE EATING LUNCH AT THIS TIME. CALL LIGHT IN REACH, WILL CONTINUE TO MONITOR.
[2024-02-17 14:08] VITALS: BP 137/87
--- NOTE | 2024-02-17 19:10 | NUR ---
NO ACUTE CHANGES T/O THE SHIFT. PT REQUIRED MANUAL BLADDER IRRIGATION X 3. CONTIUOUS IRRIGATION T/O THE SHIFT, WITH BLOOD CLOT FORMATON. PT ABLE TO REPORT WHEN CATHETER FLOW STOPS AND NOTIFYS RN FOR MANUAL FLUSHING. PT HAS NO COMPLAINTS OF DISCOMFORT OTHER THAN WHEN CATHETER BECOMES CLOGGED. AT BEDSIDE THIS AFTERNOON. PT RESTING QUIETLY IN BED. CALL LIGHT IN REACH. REPORT GIVEN TO NOC SHIFT RN.
[2024-02-17 19:45] VITALS: BP 127/82
[2024-02-18 04:33] VITALS: BP 111/67
--- NOTE | 2024-02-18 04:55 | NUR ---
SHIFT SUMMARY CONTINUOUS BLADDER IRRIGATION OVERNIGHT. FREQUENT MANUAL IRRIGATION REQUIRED TO CLEAR LARGE QUANTITIES OF BLOOD CLOTS. CLOTS RANGING IN SIZE FROM 2-5MM. BEGINNING OF SHIFT, URINE RED WITH CLOTS. BY END OF SHIFT, URINE PINK WITH MINIMAL CLOTS. PAIN MANAGED UTILIZING NPIS AND PER EMAR. PT ABLE TO REST DURING SHIFT. PT VOICED UNDERSTANDING OF PLAN OF CARE. PT VOICES CONCERNS OF DURATION OF BLADDER IRRIGATION AND WANTING TO DISCUSS CONSULT TO UROLOGY WITH FOLLOWING PROVIDER THIS MORNING DURING ROUNDS. PT DENIES FURTHER QUESTIONS/CONCERNS AT THIS TIME.
[2024-02-18 05:11] LABS: BASOPHILS ABSOLUTE AUTO 0.06 K/mm3 (0.00-0.23); BASOPHILS PERCENT AUTO 1 % (0-2); EOSINOPHILS ABSOLUTE AUTO 0.11 K/mm3 (0.00-0.68); EOSINOPHILS PERCENT AUTO 1 % (0-6); Hematocrit 33.9 % (37.0-53.0); Hemoglobin 11.5 g/dL (13.5-17.5); IMMATURE GRAN ABSOLUTE AUTO 0.07 K/mm3 (0.00-0.10); IMMATURE GRAN PERCENT AUTO 1 % (0-1); LYMPHOCYTES PERCENT AUTO 21 % (21-46); MONOCYTES ABSOLUTE AUTO 1.26 K/mm3 (0.16-1.47); MONOCYTES PERCENT AUTO 10 % (4-13); Mean Corpuscular HGB 32.7 pg (26.0-34.0); Mean Corpuscular HGB Conc 33.9 g/dL (31.5-36.5); Mean Corpuscular Volume 96 fL (80-100); Mean Platelet Volume 10.6 fL (9.1-12.4); NEUTROPHILS ABSOLUTE AUTO 8.92 K/mm3 (1.96-9.15); NEUTROPHILS PERCENT AUTO 68 % (41-73); Platelet Count 270 K/mm3 (150-400); RDW Coefficient Variation 13.2 % (11.7-14.2); RDW Standard Deviation 45.5 fL (35.1-46.3); Red Blood Cell Count 3.52 M/mm3 (4.30-5.90); White Blood Cell Count 13.22 K/mm3 (4.00-11.30)
[2024-02-18 05:49] LABS: Calcium, Blood 9.6 mg/dL (8.5-10.1); Creatinine, Blood 0.77 mg/dL (0.60-1.20); Potassium, Blood 3.8 mmol/L (3.5-5.5)
[2024-02-18 07:24] VITALS: BP 121/79
[2024-02-18] MEDS ORDERED: HYDROmorphone HCl/Pf 1MG SYR IV PRN (11:15)
[2024-02-18] MEDS ORDERED: TraMADol HCl 50 MG Tab PO PRN (11:15)
--- NOTE | 2024-02-18 13:00 | NUR ---
DR BRENDA NOBLE CALLED c ORDER TO CHANGE FITZGERALD. PER CONSULT FROM [facility], BRAZILIAN SIZE ON FITZGERALD NEEDS TO BE INCREASED FROM 20 TO 22. CONTINUE CBI c MANUAL IRRIGATION PRN
[2024-02-18 15:19] VITALS: BP 126/74
[2024-02-18 19:40] VITALS: BP 124/62
--- NOTE | 2024-02-18 19:49 | NUR ---
SHIFT SUMMARY S/P HEMATURIA c CONT BLADDER IRRIGATION. NO ACUTE CHANGES TODAY. VSS, MOIST OCCASIONAL COUGH. TOLERATING DIET. PT USED 8 BAGS TOTAL FOR IRRIGATION. FITZGERALD CHANGED TODAY PER MD ORDER, AMHARIC SIZE INCREASED FROM 20 TO 22. PT TOLERATED WELL. PRIOR TO CHANGE, URINE c FREQUENT BLOOD CLOTS & DARK RED. AFTER CHANGE, URINE LIGHT PINK c MIN CLOTS. MIN MANUAL IRRIGATION REQUIRED. PT STATES DISCOMFORT c MANUAL IRRIGATION. PT REPORTS PAIN TOLERABLE, MEDICATED PER EMAR. ANTICIPATED D/C TOMORROW c FITZGERALD IN PLACE. CALL LIGHT IN REACH, BED IN LOWEST POSITION, REPORT GIVEN TO NOC RN.
[2024-02-19 04:08] VITALS: BP 113/58
[2024-02-19 04:38] LABS: BASOPHILS ABSOLUTE AUTO 0.05 K/mm3 (0.00-0.23); BASOPHILS PERCENT AUTO 0 % (0-2); EOSINOPHILS ABSOLUTE AUTO 0.13 K/mm3 (0.00-0.68); EOSINOPHILS PERCENT AUTO 1 % (0-6); Hematocrit 32.3 % (37.0-53.0); IMMATURE GRAN PERCENT AUTO 1 % (0-1); LYMPHOCYTES ABSOLUTE AUTO 2.09 K/mm3 (0.84-5.20); LYMPHOCYTES PERCENT AUTO 18 % (21-46); MONOCYTES ABSOLUTE AUTO 1.18 K/mm3 (0.16-1.47); MONOCYTES PERCENT AUTO 10 % (4-13); Mean Corpuscular HGB 32.5 pg (26.0-34.0); Mean Corpuscular HGB Conc 34.1 g/dL (31.5-36.5); Mean Corpuscular Volume 96 fL (80-100); Mean Platelet Volume 10.1 fL (9.1-12.4); NEUTROPHILS ABSOLUTE AUTO 7.93 K/mm3 (1.96-9.15); NEUTROPHILS PERCENT AUTO 69 % (41-73); Platelet Count 288 K/mm3 (150-400); RDW Standard Deviation 44.6 fL (35.1-46.3); Red Blood Cell Count 3.38 M/mm3 (4.30-5.90); White Blood Cell Count 11.48 K/mm3 (4.00-11.30)
--- NOTE | 2024-02-19 04:53 | NUR ---
SHIFT SUMMARY NO ACUTE CHANGES OVERNIGHT. CONTINUOUS BLADDER IRRIGATION ORDERED; PT JD WELL. URINE AT START OF SHIFT WAS PINK, PROGRESSIVELY BECAME MORE CLEAR UNTIL 0400 WHEN PT CALLED C/O BLADDER PRESSURE. THIS RN PERFORMED MANUAL IRRIGATION, RESULTING IN LOOSENING SEVERAL LARGE CLOTS, APPROX 6-8MM IN DIAMETER. PAIN MANAGED UTILIZING NPIS AND PER EMAR. PT VOICED UNDERSTANDING OF PLAN OF CARE, DENIES QUESTIONS/CONCERNS AT THIS TIME.
--- NOTE | 2024-02-19 05:03 | NUR ---
CONTINUOUS BLADDER IRRIGATION SHIFT IN: 18,000ML SHIFT OUT: 20,400ML
[2024-02-19 05:09] LABS: Bun/Creatinine Ratio 21.1 (12.0-20.0); Calcium, Blood 9.4 mg/dL (8.5-10.1); Creatinine, Blood 0.76 mg/dL (0.60-1.20)
[2024-02-19 07:23] VITALS: BP 130/77
[2024-02-19 15:09] VITALS: BP 130/85
--- NOTE | 2024-02-19 19:19 | NUR ---
SUMMARY: CONTINUIOUS BLADDER IRRIGATION IN PLACE. PT HAD LIGHT PINK TO RED OUTPUT TODAY. SOME CLOTS SEEN IN TUBING, ONLY NEEDED MANUAL IRRIGATION X1. PT HAD NO COMPLAINTS OF INCREASED PAIN OR PRESSURE AT CATH SITE. PT A/O, VSS, USES CALL LIGHT.
[2024-02-19 19:43] VITALS: BP 141/90
[2024-02-20] MEDS ORDERED: Melatonin 5 MG Tablet PO SCH (00:20)
--- NOTE | 2024-02-20 04:37 | NUR ---
SHIFT SUMMARY PT HAS HAD CONTINIOUS BLADDER IRRIGATION T/O THE NIGHT. PT HAS HAD NO DISCOMFORT OR SPASMS. BLADDER CHANGES FROM LIGHT PINK TO CLEAR OFF AND ON T/O THE NIGHT. MINIMAL CLOTS. PT REQUESTED TO SLEEP IN THE RECLINER INSTEAD OF THE BED, STATING FOR COMFORTABLE FOR HIS LEFT SHOULDER AFTER HIS RECENT SURGERY. VITALS STABLE. PLAN OF CARE REMAINS UNCHANGED. BED IN LOWEST POSITION, CALL LIGHT WITHIN REACH.
[2024-02-20 05:16] VITALS: BP 142/75
[2024-02-20 06:02] LABS: BASOPHILS ABSOLUTE AUTO 0.07 K/mm3 (0.00-0.23); BASOPHILS PERCENT AUTO 1 % (0-2); EOSINOPHILS ABSOLUTE AUTO 0.21 K/mm3 (0.00-0.68); EOSINOPHILS PERCENT AUTO 2 % (0-6); Hematocrit 32.8 % (37.0-53.0); IMMATURE GRAN ABSOLUTE AUTO 0.13 K/mm3 (0.00-0.10); IMMATURE GRAN PERCENT AUTO 1 % (0-1); LYMPHOCYTES ABSOLUTE AUTO 2.31 K/mm3 (0.84-5.20); LYMPHOCYTES PERCENT AUTO 22 % (21-46); MONOCYTES ABSOLUTE AUTO 1.37 K/mm3 (0.16-1.47); MONOCYTES PERCENT AUTO 13 % (4-13); Mean Corpuscular HGB 32.4 pg (26.0-34.0); Mean Corpuscular HGB Conc 33.5 g/dL (31.5-36.5); Mean Corpuscular Volume 97 fL (80-100); Mean Platelet Volume 10.5 fL (9.1-12.4); NEUTROPHILS PERCENT AUTO 62 % (41-73); Platelet Count 262 K/mm3 (150-400); RDW Standard Deviation 44.2 fL (35.1-46.3); White Blood Cell Count 10.69 K/mm3 (4.00-11.30)
[2024-02-20 06:32] LABS: Bun/Creatinine Ratio 19.9 (12.0-20.0); Calcium, Blood 9.2 mg/dL (8.5-10.1); Creatinine, Blood 0.85 mg/dL (0.60-1.20); Potassium, Blood 3.7 mmol/L (3.5-5.5)
--- NOTE | 2024-02-20 06:45 | NUR ---
PT C/O INCREASED PAIN TO BLADDER AFTER AMBULATION AND UP IN CHAIR.CONTINUUS IRRIGATION NOT FLOWING.BLADDER SCAN WAS COMPLETED PER TOUCH UP CARVER IWTH 2 ML REPORTED. I HAND IRRIGATED WITH RETURN OF 1 APPROX DIME SIZED CLOT WITH PT REPORT OF RESOLVED PAIN.CONTINUOUS IRRIGATION FLOWING FULLY WITH RETURN OF CLEAR.SECUREMENT DEVICE PLACED.
[2024-02-20 07:19] VITALS: BP 123/80
[2024-02-20] MEDS ORDERED: NS 250 ML IV PRN (10:20)
[2024-02-20 15:53] VITALS: BP 145/94
--- NOTE | 2024-02-20 18:29 | NUR ---
SHIFT SUMMARY PT REMAINS ON CONTINUOUS BLADDER IRRIGATION. HIS URINE HAS CHANGED FROM LIGHT PINK WITH FREQUENT CLOTS TO LIGHT YELLOW WITH FEW CLOTS THIS EVENING. PT HAS BEEN ABLE TO GET OOB AND AMBULATE WELL SIT UP TO THE CHAIR WITHOUT ANY INCREASE IN BLEEDING OR CLOT OUTPUT. PT HAS TOLERATED CONTINUOUS BLADDER IRRIGATION WELL THIS SHIFT. PT HAS HAD SOME MILD BACK DISCOMFORT, MANAGED WITH TYLENOL. VSS. PT IS A SBA WHEN OOB FOR HELP WITH LINES AND TUBES. PT USES CALL LIGHT APPROPRIATELY. FRIENDS/FAMILY HAVE BEEN AT THE BEDSIDE FOR SUPPORT.
[2024-02-20 20:18] VITALS: BP 151/88
--- NOTE | 2024-02-21 04:09 | NUR ---
SHIFT SUMMARY PAVAN WAS ALERT AND FULLY ORIENTED ON ASSESMENT. PT ON CONT. BLADDER IRRIGATION. OUTPUT IS MOSTLY CLEAR SLIGHT PINK TINT AT TIMES, SOME CLOTS NOTED IN CATHETER BAG, CATHETER PATENCY MAINTAINED T/O SHIFT W/O MANUAL FLUSHING. PT IS SBA FOR LINE MANAGEMENT. NO CHANGES TO PT CONDITION NOTED. PT RESTING IN BED WITH CALL LIGHT IN REACH.
[2024-02-21 05:50] VITALS: BP 138/74
[2024-02-21 06:30] LABS: Hematocrit 33.4 % (37.0-53.0); Hemoglobin 11.2 g/dL (13.5-17.5); Mean Corpuscular HGB 32.4 pg (26.0-34.0); Mean Corpuscular HGB Conc 33.5 g/dL (31.5-36.5); Mean Corpuscular Volume 97 fL (80-100); Mean Platelet Volume 10.4 fL (9.1-12.4); Platelet Count 300 K/mm3 (150-400); RDW Coefficient Variation 13.2 % (11.7-14.2); RDW Standard Deviation 45.1 fL (35.1-46.3); Red Blood Cell Count 3.46 M/mm3 (4.30-5.90); White Blood Cell Count 10.44 K/mm3 (4.00-11.30)
[2024-02-21 07:03] LABS: Bun/Creatinine Ratio 19.3 (12.0-20.0); Calcium, Blood 9.2 mg/dL (8.5-10.1); Creatinine, Blood 0.78 mg/dL (0.60-1.20); Potassium, Blood 3.9 mmol/L (3.5-5.5)
[2024-02-21 07:10] VITALS: BP 122/87
--- NOTE | 2024-02-21 12:26 | NUR ---
DR. KURTZ ROUNED THIS AM AND STATE OK TO STOP CONTINUOUS BLADDER IRRIGATION AT THIS TIME. NO CLOTS OBSERVED OUT OF CATHETER THIS SHIFT. URINE REMAINS LIGHT YELLOW. PT HAS NOT REQUIRED MANUAL BLADDER IRRIGATION FOR OVER 24 HOURS.
[2024-02-21 15:20] VITALS: BP 126/83
--- NOTE | 2024-02-21 17:37 | NUR ---
SHIFT SUMMARY BLADDER IRRIGATION WAS STOPPED THIS SHIFT. PT HAS TOLERATED WELL. PT'S URINE IS TEA COLORED WITH OCCASIONALL LARGE CLOTS AND MANY SMALL CLOT THAT HAVE A SAND LIKE APPEARANCE. URINE HAS BECOME MORE CONCENTRATED T/O THE DAY, PT EDUCATED TO INCREASE FLUID INTAKE. PAIN MANAGED WITH TYLENOL, PT HAS MOSTLY COMPLAINED OF L SHOULDER DISCOMFORT R/T RECENT TOTAL SHOULDER ARTHROPLASTY. PT HAS BEEN INDEPENDENT IN THE ROOM SINCE BLADDER IRRIGATION WAS DISCONNECTED. PT USES CALL LIGHT APPROPRIATELY. FAMILY AT THE BEDSIDE FOR SUPPORT.
[2024-02-21 19:28] VITALS: BP 143/83
--- NOTE | 2024-02-22 04:29 | NUR ---
SHIFT SUMMARY PAVAN WAS ALERT AND FULLY ORIENTED ON ASSESMENT. PT NO LONGER UNDERGOING CBI. PT WITH DECENT URINE OUTPUT TONIGHT, NO INSTANCES OF CLOGGED FITZGERALD TUBING, NO NEED FOR MANUAL FLUSHING. PT CONDTIION UNCHANGED FROM PREV NOC SHIFT. PT RESTING IN BED AT A LOW POSITON WITH CALL LIGHT IN REACH.
[2024-02-22 04:46] VITALS: BP 151/89
[2024-02-22 06:00] LABS: Hematocrit 31.7 % (37.0-53.0); Hemoglobin 10.7 g/dL (13.5-17.5); Mean Corpuscular HGB 32.2 pg (26.0-34.0); Mean Corpuscular HGB Conc 33.8 g/dL (31.5-36.5); Mean Corpuscular Volume 96 fL (80-100); Mean Platelet Volume 10.3 fL (9.1-12.4); Platelet Count 295 K/mm3 (150-400); RDW Standard Deviation 44.6 fL (35.1-46.3); Red Blood Cell Count 3.32 M/mm3 (4.30-5.90); White Blood Cell Count 10.43 K/mm3 (4.00-11.30)
[2024-02-22 07:20] VITALS: BP 128/76
[2024-02-22] MEDS ORDERED: TAMS.4ER PO ×2 (12:00)
--- NOTE | 2024-02-22 12:48 | NUR ---
DISCHARGE SUMMARY PT TO D/C HOME WITH F/U WITH UROLOGY ON THURSDAY OF THIS WEEK. FITZGERALD CATH TO REMAIN IN PLACE. URINE IS TEA COLORED/DAVIS WITH SMALL AMOUNTS OF SEDIMENT AND FLOWING WELL. PT AND EDUCATED ON CATH CARE AND QUESTIONS ANSWERED. PT STS UROLOGIST INSTRUCTED THEM TO REMOVE FITZGERALD CATH 4-6 HOURS PRIOR TO APT ON THURSDAY - INSTRUCTED ON REMOVING CATH SAFELY AND QUESTIONS ANSWERED. STS THEY MAY COME INTO HOSPITAL TO REMOVE CATHETER INSTEAD. PT STS HE FEELS GOOD AND IS OK TO DISCHARGE WITH F/U APPOINTMENTS. CALL PHYSICIAN OR RETURN TO ED IF NEEDED.
== END 2024-02-22 13:12 | disposition home or self-care (01) | DRG 698 ==
LOC: ER 22:24 → SURS 02-16 04:25 → MEDS 02-16 04:25 → SURS 02-16 06:30
PROVIDERS: Emergency Medicine; Family Medicine; Student in an Organized Health Care Education/Training Program; ADMIT Internal Medicine
DX: T83.511A Infection and inflammatory reaction due to indwelling urethral catheter, initial encounter (principal); A41.51 Sepsis due to Escherichia coli [E. coli]; E87.1 Hypo-osmolality and hyponatremia; D62 Acute posthemorrhagic anemia; N39.0 Urinary tract infection, site not specified; E11.9 Type 2 diabetes mellitus without complications; N40.1 Benign prostatic hyperplasia with lower urinary tract symptoms; G40.909 Epilepsy, unspecified, not intractable, without status epilepticus; J47.9 Bronchiectasis, uncomplicated; M45.9 Ankylosing spondylitis of unspecified sites in spine; E03.9 Hypothyroidism, unspecified; R33.8 Other retention of urine; K21.9 Gastro-esophageal reflux disease without esophagitis; R31.9 Hematuria, unspecified; T83.091A Other mechanical complication of indwelling urethral catheter, initial encounter; I10 Essential (primary) hypertension; E78.5 Hyperlipidemia, unspecified; R34 Anuria and oliguria; Z79.84 Long term (current) use of oral hypoglycemic drugs; Z79.890 Hormone replacement therapy; Z79.899 Other long term (current) drug therapy; Y84.6 Urinary catheterization as the cause of abnormal reaction of the patient, or of later complication, without mention of misadventure at the time of the procedure
CPT/HCPCS: 36415; 51700; 51702; 74177; 76770; 80048; 80053; 81001; 82947; 85025; 85027; 85610; 85730; 87040; 87077; 87086; 87186; 94640; 94664; 94760; 96365; 96366; 96376; 99283; 99284-25; A9270; G0378; J0696; J1170; J7030; J7050; Q9967

== ENCOUNTER 2024-02-26 06:04 | Emergency (ER) | payer MEDICARE ==
[~2024-02-26] VITALS: Ht 175.3 cm; Wt 104.3 kg
[~2024-02-26 06:04] MED LIST changes: +DOCU100 PO; +PYRI100 PO; +ROSUVASTATIN CA20 MG PO; +VITAMIN D350 MC3 PO
[2024-02-26] MEDS ORDERED: CEPH500 PO (06:30)
[2024-02-26] MEDS ORDERED: Lidocaine 2% Jelly Uro-Jet UR ONE (06:35)
[2024-02-26 07:10] LABS: Source, Urine Straight Cath
[2024-02-26 07:13] LABS: Appearance, Urine Clear (Clear); Bilirubin, Urine Neg (Neg); Blood, Urine 5+ (Neg); Glucose Qualitative, Urine Neg (Neg); Ketones, Urine Neg (Neg); Leukocyte Esterase, Urine Neg (Neg); Nitrite, Urine Neg (Neg); Protein, Urine 2+ (Neg); Specific Gravity, Urine 1.015 (1.003-1.022); Urobilinogen, Urine NORM (Normal)
[2024-02-26 07:31] LABS: Color, Urine Pale Yellow (P-Yellow)
[2024-02-26 07:33] LABS: Mucus Mod (0-Heavy); White Blood Cells, Urine 0-2 /hpf (0-5)
[2024-02-26 07:34] LABS: Amorphous Light (0-Heavy); Bacteria Mod /hpf; Renal Epithelial Rare /hpf (0-Rare); Squamous Epithelial Cells Not Seen /hpf (Few)
[2024-02-26 08:07] VITALS: BP 116/68
== END 2024-02-26 08:03 | disposition home or self-care (01) ==
LOC: ER 06:04
PROVIDERS: Emergency Medicine
DX: R33.9 Retention of urine, unspecified (principal); Z87.891 Personal history of nicotine dependence; Z79.51 Long term (current) use of inhaled steroids; Z79.899 Other long term (current) drug therapy
CPT/HCPCS: 51702; 51798; 81001; 87086; 99283-25

== ENCOUNTER 2024-02-27 17:54 | Emergency (ER) | payer MEDICARE ==
[~2024-02-27] VITALS: Ht 177.8 cm; Wt 104.3 kg
[2024-02-27 18:24] VITALS: BP 139/88
[2024-02-27] MEDS ORDERED: OxyCODONE HCL 5 MG TAB PO ONE (18:45)
[2024-02-27] MEDS ORDERED: Lidocaine 2% Jelly Uro-Jet UR ONE (18:45)
== END 2024-02-27 20:46 | disposition home or self-care (01) ==
LOC: ER 17:54
DX: T83.091A Other mechanical complication of indwelling urethral catheter, initial encounter (principal); R31.9 Hematuria, unspecified; E03.9 Hypothyroidism, unspecified; G40.909 Epilepsy, unspecified, not intractable, without status epilepticus; I10 Essential (primary) hypertension; E78.5 Hyperlipidemia, unspecified; Z79.890 Hormone replacement therapy; Z79.84 Long term (current) use of oral hypoglycemic drugs; Z79.899 Other long term (current) drug therapy
CPT/HCPCS: 51703; 99283-25; A9270

== ENCOUNTER 2024-02-29 03:04 | Day surgery (SDC) | payer MEDICARE ==
[~2024-02-29] VITALS: Wt 102.0 kg
[2024-02-29] MEDS ORDERED: DiphenhydrAMINE HCL 25 MG Cap PO SCH (07:10)
[2024-02-29] MEDS ORDERED: Acetaminophen 325 MG TABLET PO SCH (07:10)
[2024-02-29 13:27] VITALS: BP 148/69
[2024-02-29] MEDS ORDERED: NS IV SCH (13:40)
[2024-02-29] MEDS ORDERED: INFLIXIMAB ABDA IV SCH (13:40)
--- NOTE | 2024-02-29 13:55 | NUR ---
Patient declines pre medications.
[2024-02-29 14:18] LABS: BASOPHILS ABSOLUTE AUTO 0.04 K/mm3 (0.00-0.23); BASOPHILS PERCENT AUTO 0 % (0-2); EOSINOPHILS ABSOLUTE AUTO 0.16 K/mm3 (0.00-0.68); EOSINOPHILS PERCENT AUTO 2 % (0-6); Hematocrit 35.9 % (37.0-53.0); Hemoglobin 11.8 g/dL (13.5-17.5); IMMATURE GRAN ABSOLUTE AUTO 0.05 K/mm3 (0.00-0.10); IMMATURE GRAN PERCENT AUTO 1 % (0-1); LYMPHOCYTES ABSOLUTE AUTO 2.24 K/mm3 (0.84-5.20); LYMPHOCYTES PERCENT AUTO 25 % (21-46); MONOCYTES ABSOLUTE AUTO 0.83 K/mm3 (0.16-1.47); MONOCYTES PERCENT AUTO 9 % (4-13); Mean Corpuscular HGB 31.9 pg (26.0-34.0); Mean Corpuscular HGB Conc 32.9 g/dL (31.5-36.5); Mean Corpuscular Volume 97 fL (80-100); Mean Platelet Volume 10.6 fL (9.1-12.4); NEUTROPHILS ABSOLUTE AUTO 5.82 K/mm3 (1.96-9.15); NEUTROPHILS PERCENT AUTO 64 % (41-73); Platelet Count 360 K/mm3 (150-400); RDW Coefficient Variation 13.6 % (11.7-14.2); RDW Standard Deviation 47.4 fL (35.1-46.3); White Blood Cell Count 9.14 K/mm3 (4.00-11.30)
[2024-02-29 14:30] LABS: Albumin, Blood 3.3 g/dL (3.4-5.0); Albumin/Globulin Ratio 0.9 (0.8-1.8); Bilirubin, Total 0.4 mg/dL (0.1-1.0); Calcium, Blood 10.4 mg/dL (8.5-10.1); Creatinine, Blood 0.71 mg/dL (0.60-1.20); Globulin, Blood 3.7 g/dL (2.2-4.0); Potassium, Blood 4.3 mmol/L (3.5-5.5)
== END 2024-02-29 15:59 | disposition home or self-care (01) ==
LOC: ATC 03:04
PROVIDERS: Physician Assistant
DX: M45.0 Ankylosing spondylitis of multiple sites in spine (principal)
CPT/HCPCS: 80053; 85025; 96413; 96415; J7050; Q5104

== ENCOUNTER 2024-03-06 10:27 | Inpatient (IN) | payer MEDICARE ==
[~2024-03-06] VITALS: Ht 177.8 cm; Wt 108.3 kg
[2024-03-06 11:09] LABS: Hematocrit 38.9 % (37.0-53.0); Mean Corpuscular HGB 31.8 pg (26.0-34.0); Mean Corpuscular HGB Conc 33.4 g/dL (31.5-36.5); Mean Corpuscular Volume 95 fL (80-100); Mean Platelet Volume 10.1 fL (9.1-12.4); Platelet Count 360 K/mm3 (150-400); RDW Coefficient Variation 13.7 % (11.7-14.2); RDW Standard Deviation 47.1 fL (35.1-46.3); Red Blood Cell Count 4.09 M/mm3 (4.30-5.90); White Blood Cell Count 28.07 K/mm3 (4.00-11.30)
[2024-03-06 11:17] LABS: Albumin, Blood 3.4 g/dL (3.4-5.0); Albumin/Globulin Ratio 0.9 (0.8-1.8); Bilirubin, Total 0.6 mg/dL (0.1-1.0); Calcium, Blood 9.8 mg/dL (8.5-10.1); Creatinine, Blood 0.72 mg/dL (0.60-1.20); Globulin, Blood 3.8 g/dL (2.2-4.0); Potassium, Blood 4.4 mmol/L (3.5-5.5); Total Protein, Blood 7.2 g/dL (6.4-8.2)
[2024-03-06 11:32] LABS: BAND PERCENT MAN 2 % (0-8); BASOPHILS PERCENT MAN 0 % (0-2); EOSINOPHILS PERCENT MAN 0 % (0-6); LYMPHOCYTES PERCENT MAN 4 % (21-46); MONOCYTES PERCENT MAN 12 % (4-13); SEG NEUTROPHILS PERCENT MAN 82 % (41-73); TOTAL CELLS COUNTED 100
[2024-03-06 14:03] LABS: Source, Urine Foley catheter
[2024-03-06 14:11] LABS: Appearance, Urine Cloudy (Clear); Bilirubin, Urine Neg (Neg); Blood, Urine 5+ (Neg); Color, Urine Yellow (P-Yellow); Glucose Qualitative, Urine Neg (Neg); Ketones, Urine Neg (Neg); Leukocyte Esterase, Urine 1+ (Neg); Nitrite, Urine Pos (Neg); Protein, Urine 3+ (Neg); Specific Gravity, Urine 1.015 (1.003-1.022); Urobilinogen, Urine NORM (Normal)
[2024-03-06] MEDS ORDERED: CefTRIAXone Sodium 1,000 MG in NS 100 ML IV ONE (14:20)
[2024-03-06] MEDS ORDERED: NS 1,000 ML IV SCH ×2 (14:25→17:05)
[2024-03-06 14:44] LABS: Bacteria Many /hpf; Mucus Light (0-Heavy); Red Blood Cells, Urine TNTC /hpf (0-2); Squamous Epithelial Cells Rare /hpf (Few); Transitional Epithelial Cells Rare /hpf (0-Rare)
[2024-03-06] MEDS ORDERED: Albuterol 2.5 MG/3 ML VIAL INH PRN (17:00)
[2024-03-06] MEDS ORDERED: FLU VACC TS2024-25(6MOS UP)/PF 45 MCG/0.5 ML SYRINGE IM SCH (17:05)
[2024-03-06] MEDS ORDERED: Mometasone/Formoterol MDI 100/5 mcg 13 GM INH SCH (17:10)
[2024-03-06] MEDS ORDERED: Rosuvastatin Calcium 10 MG Tab PO SCH (21:00)
[2024-03-06] MEDS ORDERED: Montelukast Sodium 10 MG Tab PO SCH (21:00)
[2024-03-06] MEDS ORDERED: Folic Acid 1 MG TAB PO SCH (21:00)
[2024-03-06] MEDS ORDERED: Lisinopril 10 MG Tab PO SCH (21:00)
[2024-03-06] MEDS ORDERED: Insulin Human Lispro 100 Units/ML 3ML Syringe SC SCH (21:00)
[2024-03-06] MEDS ORDERED: Pregabalin 50 MG Capsule PO SCH (21:00)
[2024-03-06] MEDS ORDERED: PyridOXINE HCL 50 MG TAB PO SCH (21:00)
[2024-03-06] MEDS ORDERED: LevETIRAcetam 500 MG Tab PO SCH (21:00)
[2024-03-07 05:25] LABS: BASOPHILS ABSOLUTE AUTO 0.05 K/mm3 (0.00-0.23); BASOPHILS PERCENT AUTO 0 % (0-2); EOSINOPHILS ABSOLUTE AUTO 0.02 K/mm3 (0.00-0.68); EOSINOPHILS PERCENT AUTO 0 % (0-6); Hematocrit 32.2 % (37.0-53.0); Hemoglobin 10.7 g/dL (13.5-17.5); IMMATURE GRAN ABSOLUTE AUTO 0.18 K/mm3 (0.00-0.10); IMMATURE GRAN PERCENT AUTO 1 % (0-1); LYMPHOCYTES ABSOLUTE AUTO 1.76 K/mm3 (0.84-5.20); LYMPHOCYTES PERCENT AUTO 7 % (21-46); MONOCYTES ABSOLUTE AUTO 3.04 K/mm3 (0.16-1.47); MONOCYTES PERCENT AUTO 12 % (4-13); Mean Corpuscular HGB 31.8 pg (26.0-34.0); Mean Corpuscular HGB Conc 33.2 g/dL (31.5-36.5); Mean Corpuscular Volume 96 fL (80-100); Mean Platelet Volume 10.1 fL (9.1-12.4); NEUTROPHILS ABSOLUTE AUTO 21.11 K/mm3 (1.96-9.15); NEUTROPHILS PERCENT AUTO 81 % (41-73); Platelet Count 281 K/mm3 (150-400); RDW Coefficient Variation 13.8 % (11.7-14.2); RDW Standard Deviation 47.6 fL (35.1-46.3); Red Blood Cell Count 3.37 M/mm3 (4.30-5.90); White Blood Cell Count 26.16 K/mm3 (4.00-11.30)
[2024-03-07 05:46] LABS: Bun/Creatinine Ratio 27.1 (12.0-20.0); Calcium, Blood 8.7 mg/dL (8.5-10.1); Creatinine, Blood 0.67 mg/dL (0.60-1.20); Potassium, Blood 4.3 mmol/L (3.5-5.5)
[2024-03-07] MEDS ORDERED: Levothyroxine Sodium 0.05 MG Tab PO SCH (06:00)
[2024-03-07] MEDS ORDERED: Docusate Sodium 100 MG Cap PO SCH (09:00)
[2024-03-07] MEDS ORDERED: Tamsulosin HCl 0.4 MG Cap PO SCH (09:00)
[2024-03-07] MEDS ORDERED: Enoxaparin 40 MG/0.4 ML SYR SC SCH (09:00)
[2024-03-07] MEDS ORDERED: Ascorbic Acid 500 MG Tab PO SCH (09:00)
[2024-03-07] MEDS ORDERED: Misc. Tablet PO SCH ×2 (09:00)
[2024-03-07 10:42] VITALS: BP 113/57
[2024-03-07 10:45] VITALS: BP 115/54
[2024-03-07 11:00] VITALS: BP 106/59
--- NOTE | 2024-03-07 11:14 | NUR ---
ADMIT NOTE... PT ARRIVED TO THE UNIT AT 1030. PT WAS ABLE TO SELF TRANSFER FROM W/C TO THE BED. PT'S VS STABLE, PT IS IN SR IN THE 80'S. HE IS ON RA WITH O2 SATS>95% L/S COARSE WHEEZES T/O PT STATES IS NORMAL FOR HIM. PT DENIES CHEST PAIN OR SOB. PT'S TEMP WAS 98.0. PER THE PT HE HAS A CHRONIC FITZGERALD PLACED BY UROLOGIST, D/T THIS THE FITZGERALD WAS NOT CHANGED OUT UPON ADMIT, UA WAS SENT TO THE LAB BY E.D. STAFF. WILL CONTINUE TO MONITOR.
[2024-03-07 12:00] VITALS: BP 121/68
[2024-03-07 16:46] VITALS: BP 106/66
--- NOTE | 2024-03-07 17:58 | NUR ---
SHIFT SUMMARY... NO ACUTE NEGATIVE CHANGES NOTED THIS SHIFT. PT HAS BEEN AFEBRILE SINCE ADMIT. PT'S VS STABLE. PT HAS BEEN UP IN THE ROOM FROM THE BED TO THE RECLINER CHAIR INDEPENDENTLY WITH ONLY NEEDING HELP WITH LINES/CORDS. PT'S AT THE BEDSIDE T/O MOST OF THIS SHIFT. CALL LIGHT IN REACH WILL CONTINUE TO MONITOR UNTIL REPORT IS GIVEN TO ONCOMING RN.
[2024-03-07] MEDS ORDERED: CefTRIAXone Sodium 1,000 MG in NS 100 ML IV SCH (18:00)
[2024-03-07 20:05] VITALS: BP 105/66
--- NOTE | 2024-03-07 22:00 | NUR ---
ASSUMED CARE PT RESTING QUIETLY IN RECLINER. IN BED INITIALLY, BUT PT REQUESTED TO SLEEP IN RECLINER D/T SHOULDER. PT DENIES CP, SOB, AND NAUSEA. FITZGERALD CATHETER PATENT AND DRAINING TO GRAVITY; SMALL BLOOD CLOT NOTED; WILL MONITOR DRAINAGE T/O NIGHT.
[2024-03-08] VITALS (11 sets, daily range): BP systolic 83–130; BP diastolic 52–90
[2024-03-08 03:30] LABS: Hematocrit 32.1 % (37.0-53.0); Hemoglobin 10.6 g/dL (13.5-17.5); Mean Corpuscular HGB 31.6 pg (26.0-34.0); Mean Corpuscular Volume 96 fL (80-100); Mean Platelet Volume 9.5 fL (9.1-12.4); Platelet Count 264 K/mm3 (150-400); RDW Coefficient Variation 13.7 % (11.7-14.2); RDW Standard Deviation 47.4 fL (35.1-46.3); Red Blood Cell Count 3.35 M/mm3 (4.30-5.90); White Blood Cell Count 21.46 K/mm3 (4.00-11.30)
[2024-03-08 03:56] LABS: Bun/Creatinine Ratio 19.4 (12.0-20.0); Calcium, Blood 8.8 mg/dL (8.5-10.1); Creatinine, Blood 0.67 mg/dL (0.60-1.20); Magnesium, Blood 1.7 mg/dL (1.6-2.4); Potassium, Blood 4.2 mmol/L (3.5-5.5)
[2024-03-08] MEDS ORDERED: Mag Sulfate 1 GM/D5% 100ML 100 ML IV ONE (04:15)
--- NOTE | 2024-03-08 05:44 | NUR ---
SHIFT SUMMARY PT RESTED QUIETLY FOR MOST OF NIGHT. INTERMITTENTLY MOVED FROM BED TO CHAIR AND VICE VERSA D/T SHOULDER. FITZGERALD CATHETER WAS IRRIGATED ONCE TONIGHT W/ SMALL CLOTS REMOVED. AT 0320 PT HR IN 160-170'S AND HYPOTENSIVE; PT NOT IN DISTRESS, DENIED CP, BUT SAID "I FELT ODD". PT CONVERTED BACK INTO SINUS WITHIN 5 MINUTES. TAL AWARE W/ ORDERS FOR EKG AND MAG LEVELS. NO ACUTE EVENTS SINCE.
[2024-03-08] MEDS ORDERED: Cholecalciferol 1000 Unit Tablet (=25MCG) PO SCH (09:00)
[2024-03-08] MEDS ORDERED: Magnesium Oxide 400 MG Tab PO SCH (09:00)
[2024-03-08] MEDS ORDERED: Ciprofloxacin 500 MG Tab PO SCH (09:00)
[2024-03-08] MEDS ORDERED: Lactobacil 2-S.Thermo-Bifido 1 1 Cap PO SCH (09:00)
[2024-03-08] MEDS ORDERED: Acetaminophen 325 MG TABLET PO PRN (15:05)
[2024-03-08] MEDS ORDERED: Mag Sulfate 1 GM/D5% 100ML 100 ML IV STA (16:26)
[2024-03-08] MEDS ORDERED: Adenosine 3 MG/ML 2 ML Vial IV ONE (16:30)
[2024-03-08] MEDS ORDERED: Adenosine 3 MG/ML 2 ML Vial IV SCH (16:40)
--- NOTE | 2024-03-08 17:41 | NUR ---
SHIFT SUMMARY PT IS A&OX4, RESPONDS AND CALLS APPROPRIATLY. ON ROOM AIR WITH SATS IN THE 90'S. DENIES SOB. ON CONTINUOUS PATIENT INSURANCE CLERK, HR IN THE 80-90'S NOW. PT HAD A 4 MINUTE RUN OF SVT AND SELF CONVERTED. ATTEMPTED TO HAVE PT BLOW IN SYRINGE BUT DID NOT CONVERT TO NSR. EKG WAS OBTAINED, PROVIDER MADE AWARE, ADENOSINE ORDERED BUT NOT GIVEN. PT STATED HE FELT FLUTTERING IN HIS CHEST BUT DENIED CP DURING EPISODE. MAGNESIUM INFUSING PER PROVIDER. HR AND BP ARE STABLE NOW. MAPS > 65. CHRONIC FITZGERALD IN PLACE AND DRAINING TO GRAVITY. TOLERATING PO INTAKE. TYLENOL FOR PAIN W/ RELIEF. CALL LIGHT IN REACH.
[2024-03-08] MEDS ORDERED: Adenosine 3 MG/ML 2 ML Vial IV PRN (18:05)
--- NOTE | 2024-03-08 19:53 | NUR ---
ASSUMED CARE OF PT AT 1900. REPORT RECEIVED AT BEDSIDE. PT WAS ABLE TO PARTICIPATE IN BEDSIDE REPORT. PT STATES HE IS FEELING SOMEWHAT BETTER SINCE STARTING NEW ANTIBIOTICS. PT ALERT AND ORIENTED. PLEASANT AND COOPERATIVE WITH CARE AND ASSESSMENT. WILL REVIEW CHART AND PLAN OF CARE FOR THIS PT.
[2024-03-08] MEDS ORDERED: Metoprolol Tartrate 25 MG Tab PO SCH (21:00)
[2024-03-09] VITALS: BP 112/57
--- NOTE | 2024-03-09 00:34 | NUR ---
PT HAS SHORT RUN OF SVT VERSUS AFIB RVR. HEART RATE NEAR 150'S. HAD PT ATTEMPT VAGAL MANEUVER WITH CORRECTION. PT STATES THAT HE DID HAVE "FLUTTER" IN HIS CHEST. NO DYSPNEA OR CHEST PAIN/PRESSURE. CURRENTLY IN SINUS ARRHYTHMIA. BLOOD PRESSURE MAINTAINS DURING EPISODE AT 113/57
[2024-03-09 04:10] VITALS: BP 123/58
[2024-03-09 04:39] LABS: BASOPHILS ABSOLUTE AUTO 0.05 K/mm3 (0.00-0.23); BASOPHILS PERCENT AUTO 0 % (0-2); EOSINOPHILS PERCENT AUTO 1 % (0-6); Hematocrit 32.8 % (37.0-53.0); Hemoglobin 10.6 g/dL (13.5-17.5); IMMATURE GRAN ABSOLUTE AUTO 0.06 K/mm3 (0.00-0.10); IMMATURE GRAN PERCENT AUTO 1 % (0-1); LYMPHOCYTES ABSOLUTE AUTO 1.89 K/mm3 (0.84-5.20); LYMPHOCYTES PERCENT AUTO 15 % (21-46); MONOCYTES ABSOLUTE AUTO 1.37 K/mm3 (0.16-1.47); MONOCYTES PERCENT AUTO 11 % (4-13); Mean Corpuscular HGB 30.9 pg (26.0-34.0); Mean Corpuscular HGB Conc 32.3 g/dL (31.5-36.5); Mean Corpuscular Volume 96 fL (80-100); Mean Platelet Volume 10.1 fL (9.1-12.4); NEUTROPHILS ABSOLUTE AUTO 9.04 K/mm3 (1.96-9.15); NEUTROPHILS PERCENT AUTO 72 % (41-73); Platelet Count 284 K/mm3 (150-400); RDW Coefficient Variation 13.5 % (11.7-14.2); RDW Standard Deviation 47.2 fL (35.1-46.3); Red Blood Cell Count 3.43 M/mm3 (4.30-5.90); White Blood Cell Count 12.51 K/mm3 (4.00-11.30)
--- NOTE | 2024-03-09 04:57 | NUR ---
PT HAS TWO EPISODES OF SVT VERSUS AFIB RVR. VERY SHORT-LIVED. PT ACKNOWLEDGES ATYPICAL RHYTHM AND PERFORMS VAGAL MANEUVER. DOES INDORSE THAT HE FEELS FLUTTERING IN CHEST. NO CHEST PAIN OR PRESSURE. ATTEMPTS TO CATCH THIS RHYTHM ON EKG UNSUCESSFUL. PT HAS REMAINED AFEBRILE THROUGHOUT THE NIGHT. URINE PER CATHETER YELLOW. NO CLOTS OR SEDIMENT NOTED. HAVE STARTED IV IN LEFT FOREARM IN CASE ADENOSINE NEEDS TO BE GIVEN. LABS DRAWN FROM NEW IV START. PT TOLERATES THIS WELL. WILL CONTINUE TO MONITOR, AND WILL REPORT OFF TO ONCOMING RN.
[2024-03-09 05:08] LABS: Bun/Creatinine Ratio 15.3 (12.0-20.0); Calcium, Blood 9.4 mg/dL (8.5-10.1); Creatinine, Blood 0.65 mg/dL (0.60-1.20); Magnesium, Blood 1.6 mg/dL (1.6-2.4); Potassium, Blood 4.1 mmol/L (3.5-5.5); Thyroid Stimulating Hormone 2.58 uIU/mL (0.360-4.800)
[2024-03-09] MEDS ORDERED: Magnesium Sulf 2 GM/Water 50ML 50 ML IV ONE (05:20)
[2024-03-09 08:10] VITALS: BP 99/69
[2024-03-09] MEDS ORDERED: Magnesium Oxide 400 MG Tab PO ONE (09:00)
[2024-03-09] MEDS ORDERED: dilTIAZem HCL 120 MG CAP.CD PO SCH (09:00)
--- NOTE | 2024-03-09 09:36 | NUR ---
Urology apt Called [facility] to schedule a beatty exhchange for patient within the next week, per Dr. Ng. Pt has an apointment at 11am on ThursdayMarch 15 in the [place] office.
[2024-03-09] MEDS ORDERED: Acetaminophen325 M1 PO (11:12)
[2024-03-09] MEDS ORDERED: CIPR500 PO (11:14)
[2024-03-09] MEDS ORDERED: DILT120ERA PO (11:17)
[2024-03-09] MEDS ORDERED: VISBIOME 112.51 EACH PO (11:19)
--- NOTE | 2024-03-09 13:37 | NUR ---
Dishcharge Note Echo done, heart monitor placed, meds updated. Scheduled appointments for PCP and Urology. Discharge instructions reviewed with patient and , education provided and all questions answered. Pt sent home with all belongings, transported by his .
== END 2024-03-09 13:00 | disposition home or self-care (01) | DRG 698 ==
LOC: ER 10:27 → ERHOLD 16:54 → ICUE 16:54
PROVIDERS: Emergency Medicine; Internal Medicine; ADMIT Internal Medicine
DX: T83.511A Infection and inflammatory reaction due to indwelling urethral catheter, initial encounter (principal); A41.52 Sepsis due to Pseudomonas; N13.8 Other obstructive and reflux uropathy; E87.1 Hypo-osmolality and hyponatremia; N39.0 Urinary tract infection, site not specified; E11.9 Type 2 diabetes mellitus without complications; I10 Essential (primary) hypertension; E03.9 Hypothyroidism, unspecified; J45.909 Unspecified asthma, uncomplicated; M45.9 Ankylosing spondylitis of unspecified sites in spine; N40.1 Benign prostatic hyperplasia with lower urinary tract symptoms; G25.81 Restless legs syndrome; J47.9 Bronchiectasis, uncomplicated; Z98.42 Cataract extraction status, left eye; Z98.41 Cataract extraction status, right eye; Z87.442 Personal history of urinary calculi; Z79.899 Other long term (current) drug therapy; Z79.84 Long term (current) use of oral hypoglycemic drugs; Z79.890 Hormone replacement therapy
CPT/HCPCS: 36415; 71045; 80048; 80053; 81001; 82947; 83605; 83735; 84443; 85025; 85027; 87040; 87077; 87086; 87186; 93005; 93010; 93246; 93306; 94640; 94664; 94760; 96365; 97116; 97162; 97165; 97535; 99284-25; A9270; J0696; J1650; J3475; J7030

== ENCOUNTER 2024-04-03 13:47 | Emergency (ER) | payer MEDICARE ==
[~2024-04-03] VITALS: Ht 177.8 cm; Wt 145.2 kg
[~2024-04-03 13:47] MED LIST changes: +Acetaminophen325 M1 PO; +CIPR500 PO; +DILT120ERA PO; +VISBIOME 112.51 EACH PO
[2024-04-03 14:28] LABS: BASOPHILS ABSOLUTE AUTO 0.03 K/mm3 (0.00-0.23); BASOPHILS PERCENT AUTO 0 % (0-2); EOSINOPHILS ABSOLUTE AUTO 0.09 K/mm3 (0.00-0.68); EOSINOPHILS PERCENT AUTO 1 % (0-6); Hematocrit 41.9 % (37.0-53.0); Hemoglobin 13.7 g/dL (13.5-17.5); IMMATURE GRAN ABSOLUTE AUTO 0.05 K/mm3 (0.00-0.10); IMMATURE GRAN PERCENT AUTO 1 % (0-1); LYMPHOCYTES ABSOLUTE AUTO 1.16 K/mm3 (0.84-5.20); LYMPHOCYTES PERCENT AUTO 11 % (21-46); MONOCYTES ABSOLUTE AUTO 1.18 K/mm3 (0.16-1.47); MONOCYTES PERCENT AUTO 12 % (4-13); Mean Corpuscular HGB 30.3 pg (26.0-34.0); Mean Corpuscular HGB Conc 32.7 g/dL (31.5-36.5); Mean Corpuscular Volume 93 fL (80-100); Mean Platelet Volume 11.1 fL (9.1-12.4); NEUTROPHILS ABSOLUTE AUTO 7.79 K/mm3 (1.96-9.15); NEUTROPHILS PERCENT AUTO 76 % (41-73); Platelet Count 232 K/mm3 (150-400); RDW Coefficient Variation 14.1 % (11.7-14.2); RDW Standard Deviation 47.6 fL (35.1-46.3); Red Blood Cell Count 4.52 M/mm3 (4.30-5.90)
[2024-04-03 14:36] LABS: Albumin, Blood 3.2 g/dL (3.4-5.0); Albumin/Globulin Ratio 1.1 (0.8-1.8); Bilirubin, Total 0.6 mg/dL (0.1-1.0); Bun/Creatinine Ratio 31.3 (12.0-20.0); Calcium, Blood 9.2 mg/dL (8.5-10.1); Creatinine, Blood 0.86 mg/dL (0.60-1.20); Potassium, Blood 4.1 mmol/L (3.5-5.5); Total Protein, Blood 6.2 g/dL (6.4-8.2)
[2024-04-03] MEDS ORDERED: Ondansetron HCl 2 MG / ML 2ML Vial IV ONE (14:50)
[2024-04-03] MEDS ORDERED: Diltiazem HCl 5 MG / ML 5ML Vial IV ONE (14:55)
[2024-04-03] MEDS ORDERED: Lactated Ringer's 1,000 ML IV ONE (15:00)
[2024-04-03 15:07] LABS: Magnesium, Blood 1.3 mg/dL (1.6-2.4)
[2024-04-03 15:08] LABS: Thyroid Stimulating Hormone 3.99 uIU/mL (0.360-4.800)
[2024-04-03] MEDS ORDERED: Magnesium Sulf 2 GM/Water 50ML 50 ML IV ONE (15:15)
[2024-04-03] MEDS ORDERED: ONDA4ODT MM (15:41)
[2024-04-03 16:00] VITALS: BP 100/59
== END 2024-04-03 16:17 | disposition home or self-care (01) ==
LOC: ER 13:47
PROVIDERS: Emergency Medicine
DX: I47.10 Supraventricular tachycardia, unspecified (principal); E83.42 Hypomagnesemia; E03.9 Hypothyroidism, unspecified; I10 Essential (primary) hypertension; E78.5 Hyperlipidemia, unspecified; Z79.51 Long term (current) use of inhaled steroids; Z79.84 Long term (current) use of oral hypoglycemic drugs; Z79.899 Other long term (current) drug therapy
CPT/HCPCS: 71046; 80053; 83735; 84443; 84484; 85025; 93005; 93010; 96361; 96365; 96375; 99285-25; J2405; J3475; J7120

== ENCOUNTER 2024-04-25 04:11 | Day surgery (SDC) | payer MEDICARE ==
[~2024-04-25 04:11] MED LIST changes: +ONDA4ODT MM
[2024-04-25 08:00] VITALS: BP 129/63
[2024-04-25] MEDS ORDERED: NS IV SCH (08:10)
[2024-04-25] MEDS ORDERED: INFLIXIMAB ABDA IV SCH (08:10)
== END 2024-04-25 10:40 | disposition home or self-care (01) ==
LOC: ATC 04:11
DX: M45.0 Ankylosing spondylitis of multiple sites in spine (principal)
CPT/HCPCS: 96413; 96415; J7050; Q5104

== ENCOUNTER 2024-06-20 01:11 | Day surgery (SDC) | payer MEDICARE ==
[2024-06-20] MEDS ORDERED: Acetaminophen 325 MG TABLET PO SCH (06:50)
[2024-06-20] MEDS ORDERED: DiphenhydrAMINE HCL 25 MG Cap PO SCH (06:50)
[2024-06-20 08:05] VITALS: BP 129/82
[2024-06-20] MEDS ORDERED: INFLIXIMAB ABDA IV SCH (08:10)
[2024-06-20] MEDS ORDERED: NS IV SCH (08:10)
== END 2024-06-20 10:34 | disposition home or self-care (01) ==
LOC: ATC 01:11
DX: M45.0 Ankylosing spondylitis of multiple sites in spine (principal)
CPT/HCPCS: 96413; 96415; J7050; Q5104

== ENCOUNTER 2024-07-13 22:28 | Emergency (ER) | payer MEDICARE ==
[~2024-07-13] VITALS: Ht 177.8 cm; Wt 99.8 kg
[2024-07-14 01:18] VITALS: BP 132/75
== END 2024-07-14 01:47 | disposition other institution (70) ==
LOC: ER 22:28
DX: T83.091A Other mechanical complication of indwelling urethral catheter, initial encounter (principal); Z79.84 Long term (current) use of oral hypoglycemic drugs; Z79.51 Long term (current) use of inhaled steroids
CPT/HCPCS: 51700; 99283-25

== ENCOUNTER 2024-08-11 19:12 | Emergency (ER) | payer MEDICARE ==
[~2024-08-11] VITALS: Ht 177.8 cm; Wt 96.6 kg
[2024-08-11 19:23] VITALS: BP 135/90
== END 2024-08-11 20:18 | disposition home or self-care (01) ==
LOC: ER 19:12
DX: T83.091A Other mechanical complication of indwelling urethral catheter, initial encounter (principal); I10 Essential (primary) hypertension; E78.5 Hyperlipidemia, unspecified; Z87.442 Personal history of urinary calculi; Z79.899 Other long term (current) drug therapy; Z79.51 Long term (current) use of inhaled steroids; Z79.1 Long term (current) use of non-steroidal anti-inflammatories (NSAID); Z79.84 Long term (current) use of oral hypoglycemic drugs; Z79.620 Long term (current) use of immunosuppressive biologic; Z79.83 Long term (current) use of bisphosphonates; Z79.890 Hormone replacement therapy; Z79.631 Long term (current) use of antimetabolite agent; Z16.23 Resistance to quinolones and fluoroquinolones
CPT/HCPCS: 99281

== ENCOUNTER 2024-09-07 03:06 | Day surgery (SDC) | payer MEDICARE ==
[~2024-09-07] VITALS: Wt 97.9 kg
[2024-09-07 15:14] VITALS: BP 120/56
[2024-09-07] MEDS ORDERED: NS IV SCH (15:30)
[2024-09-07] MEDS ORDERED: INFLIXIMAB ABDA IV SCH (15:30)
== END 2024-09-07 18:11 | disposition home or self-care (01) ==
LOC: ATC 03:06
DX: M45.0 Ankylosing spondylitis of multiple sites in spine (principal)
CPT/HCPCS: 96413; 96415; J7050; Q5104

== ENCOUNTER 2025-01-08 14:49 | Inpatient (IN) | payer MEDICARE ==
[~2025-01-08] VITALS: Ht 175.3 cm; Wt 98.0 kg
[~2025-01-08 14:49] MED LIST changes: -METHOTREXATE2.5 M2 PO; +METTREX2.5 PO; -Prinivil10 MG PO
[2025-01-08 15:25] LABS: BASOPHILS ABSOLUTE AUTO 0.06 K/mm3 (0.00-0.23); BASOPHILS PERCENT AUTO 0 % (0-2); EOSINOPHILS ABSOLUTE AUTO 0.03 K/mm3 (0.00-0.68); EOSINOPHILS PERCENT AUTO 0 % (0-6); Hematocrit 33.4 % (37.0-53.0); Hemoglobin 11.2 g/dL (13.5-17.5); IMMATURE GRAN ABSOLUTE AUTO 0.09 K/mm3 (0.00-0.10); IMMATURE GRAN PERCENT AUTO 1 % (0-1); LYMPHOCYTES ABSOLUTE AUTO 2.01 K/mm3 (0.84-5.20); LYMPHOCYTES PERCENT AUTO 12 % (21-46); MONOCYTES ABSOLUTE AUTO 1.54 K/mm3 (0.16-1.47); MONOCYTES PERCENT AUTO 9 % (4-13); Mean Corpuscular HGB Conc 33.5 g/dL (31.5-36.5); Mean Corpuscular Volume 93 fL (80-100); NEUTROPHILS ABSOLUTE AUTO 12.79 K/mm3 (1.96-9.15); NEUTROPHILS PERCENT AUTO 77 % (41-73); NRBC ABSOLUTE 0.00 K/mm3 (0.00-0.02); NRBC Auto 0.0 /100 WBC (0.0-0.2); Platelet Count 289 K/mm3 (150-400); RDW Coefficient Variation 14.8 % (11.7-14.2); RDW Standard Deviation 49.7 fL (35.1-46.3)
[2025-01-08 15:49] LABS: Alanine Aminotransfer (ALT/SGP 19.0 U/L (12-78); Albumin, Blood 3.5 g/dL (3.4-5.0); Albumin/Globulin Ratio 1.1 (0.8-1.8); Anion Gap 11.0 mmol/L (3-11); Aspartate Aminotrans (AST/SGOT 11.0 U/L (12-37); Bilirubin, Total 0.4 mg/dL (0.1-1.0); Blood Urea Nitrogen 61.0 mg/dL (8-24); CO2, Blood 23.0 mmol/L (21-32); Calcium, Blood 9.4 mg/dL (8.5-10.1); Chloride, Blood 106.0 mmol/L (98-108); Creatinine, Blood 0.81 mg/dL (0.60-1.20); Globulin, Blood 3.2 g/dL (2.2-4.0); Glucose, Blood 154.0 mg/dL (70-99); Potassium, Blood 4.5 mmol/L (3.5-5.5); Sodium, Blood 135.0 mmol/L (136-145); Total Protein, Blood 6.7 g/dL (6.4-8.2)
[2025-01-08] MEDS ORDERED: NS 1,000 ML IV SCH ×2 (16:15→22:25)
[2025-01-08] MEDS ORDERED: CefTRIAXone Sodium 2,000 MG in NS 100 ML IV ONE (16:25)
[2025-01-08] MEDS ORDERED: Ondansetron HCl 2 MG / ML 2ML Vial IV ONE (18:55)
[2025-01-08] MEDS ORDERED: Pantoprazole Sodium 40 MG Injection IV ONE (21:30)
[2025-01-08 23:02] VITALS: BP 127/83
[2025-01-09] VITALS (16 sets, daily range): BP systolic 83–143; BP diastolic 48–82
[2025-01-09 00:15] LABS: Hematocrit 31.2 % (37.0-53.0); Hemoglobin 10.4 g/dL (13.5-17.5)
[2025-01-09] MEDS ORDERED: Pantoprazole Sodium 40 MG Injection IV SCH (06:00)
--- NOTE | 2025-01-09 06:02 | NUR ---
PT ADMITTED FROM ED WITH ABDOMINAL PAIN AND NAUSEA, DENIES PAIN AND NO NAUSEA THIS SHIFT SINCE ADMIT TO UNIT. VS WNL, REMAINS ON IVF, AND IVABX. CBG WNL NO SSI NEEDED. NO FURTHER STOOLS, DOES HAVE SIGNIFICANT FLATUS THOUGH. L/S ARE WITH CRACKLES, REMAINS ON RA, AND NO COUGH NOTED. UNSURE WHAT PLAN IS FOR TODAY.
[2025-01-09 06:51] LABS: BASOPHILS ABSOLUTE AUTO 0.04 K/mm3 (0.00-0.23); BASOPHILS PERCENT AUTO 0 % (0-2); EOSINOPHILS ABSOLUTE AUTO 0.03 K/mm3 (0.00-0.68); EOSINOPHILS PERCENT AUTO 0 % (0-6); Hematocrit 27.4 % (37.0-53.0); Hemoglobin 9.3 g/dL (13.5-17.5); IMMATURE GRAN ABSOLUTE AUTO 0.06 K/mm3 (0.00-0.10); IMMATURE GRAN PERCENT AUTO 1 % (0-1); LYMPHOCYTES ABSOLUTE AUTO 2.98 K/mm3 (0.84-5.20); LYMPHOCYTES PERCENT AUTO 26 % (21-46); MONOCYTES ABSOLUTE AUTO 1.60 K/mm3 (0.16-1.47); MONOCYTES PERCENT AUTO 14 % (4-13); Mean Corpuscular HGB Conc 33.9 g/dL (31.5-36.5); Mean Corpuscular Volume 94 fL (80-100); NEUTROPHILS ABSOLUTE AUTO 6.87 K/mm3 (1.96-9.15); NEUTROPHILS PERCENT AUTO 59 % (41-73); NRBC ABSOLUTE 0.00 K/mm3 (0.00-0.02); NRBC Auto 0.0 /100 WBC (0.0-0.2); Platelet Count 220 K/mm3 (150-400); RDW Coefficient Variation 15.3 % (11.7-14.2); RDW Standard Deviation 51.9 fL (35.1-46.3)
[2025-01-09 07:32] LABS: Alanine Aminotransfer (ALT/SGP 15.0 U/L (12-78); Albumin, Blood 3.1 g/dL (3.4-5.0); Albumin/Globulin Ratio 1.1 (0.8-1.8); Anion Gap 5.0 mmol/L (3-11); Aspartate Aminotrans (AST/SGOT 10.0 U/L (12-37); Bilirubin, Total 0.3 mg/dL (0.1-1.0); Blood Urea Nitrogen 35.0 mg/dL (8-24); CO2, Blood 27.0 mmol/L (21-32); Calcium, Blood 9.0 mg/dL (8.5-10.1); Chloride, Blood 109.0 mmol/L (98-108); Creatinine, Blood 0.79 mg/dL (0.60-1.20); Globulin, Blood 2.7 g/dL (2.2-4.0); Glucose, Blood 124.0 mg/dL (70-99); Potassium, Blood 3.9 mmol/L (3.5-5.5); Sodium, Blood 137.0 mmol/L (136-145); Total Protein, Blood 5.8 g/dL (6.4-8.2)
--- NOTE | 2025-01-09 07:42 | NUR ---
ASSUMPTION OF CARE: THIS RN ASSUMED CARE OF PATIENT. AWAKE DURING SHIFT CHANGE REPORT. SITTING UP ON SIDE OF BED. BREATHING EVEN AND UNLABORED c ROOM AIR. BED IN LOWEST POSITION. CALL LIGHT WITHIN REACH. ACUTE NEEDS MET.
[2025-01-09] MEDS ORDERED: Benzocaine Oral Spray 0.5ML UD ONE (08:59)
[2025-01-09] MEDS ORDERED: Lactobacil 2-S.Thermo-Bifido 1 1 Cap PO SCH (09:00)
--- NOTE | 2025-01-09 09:24 | NUR ---
PT HAS 18G TO LEFT FOREARM THAT FLUSHES WELL AND FLOWS TO GRAVITY.
--- NOTE | 2025-01-09 09:27 | NUR ---
01/09/25 0927 Ashely Ortiz CONFIRMED AND REVIEWED H&P, MEDCICATIONS, ALLERGIES, MEDICAL HISTORY, RESPIRATORY HISTORY, VITAL SIGNS, 3-LEAD EKG, CONSENTS, AND PHYSICIAN ORDERS. PATIENT CONFIRMS NPO STATUS AND AGREES WITH SCHEDULED PROCEDURE. MONITOR INTACT WITH CONTINUOUS PULSE OXIMETRY, CAPNOGRAPHY, 3-LEAD EKG, INTERMITTENT BP. SUPPLEMENTAL O2 TO BE TITRATED THROUGHOUT PROCEDURE TO MAINTAIN O2 SATURATION ABOVE 90%. PATIENT DETERMINED TO BE ASA APPROPRIATE FOR PROPOFOL SEDATION PRIOR TO START OF PROCEDURE BY .MALLAMPATI CLASS 2 AIRWAY: COMPLETE VISUALIZATION OF THE UVULA.
[2025-01-09] MEDS ORDERED: Formoterol/Mometasone MDI 5/100 mcg 13 GM INH SCH (09:55)
[2025-01-09] MEDS ORDERED: MELO7.5 PO (10:54)
[2025-01-09] MEDS ORDERED: Aspir 8181 MG PO (10:56)
[2025-01-09] MEDS ORDERED: POTASSIUM GLUCO90 M1 PO (10:59)
[2025-01-09] MEDS ORDERED: PYRI100 PO (11:00)
[2025-01-09] MEDS ORDERED: Insulin Human Lispro 100 Units/ML 3ML Syringe SC SCH ×2 (16:30)
[2025-01-09] MEDS ORDERED: CefTRIAXone Sodium 1,000 MG in NS 100 ML IV SCH (18:00)
--- NOTE | 2025-01-09 18:23 | NUR ---
END OF SHIFT SUMMARY: A&Ox4. PLEASANT AND COOPERATIVE WITH CARE. CALLS APPROPRIATELY AND IS ABLE TO ADVOCATE NEEDS EFFECTIVELY. VSS. BREATHING EVEN AND UNLABORED c RA. CONTINENT OF BOWEL AND BLADDER; LBM TODAY. NO MELENA NOTED. TOLERATING DIET FULL LIQUID DIET c Rx ADVANCE DIET TOLERATED TO SOFT FOODS. AMBULATES INDEPENDENTLY. MEDS WHOLE c FLUIDS. ANTICIPATE DC TOMORROW. BED IN LOWEST POSITION, CALL LIGHT WITHIN REACH, ALL NEEDS MET. REPORT TO ONCOMING NURSE.
[2025-01-09] MEDS ORDERED: Folic Acid 1 MG TAB PO SCH (21:00)
[2025-01-10 02:26] VITALS: BP 116/60
--- NOTE | 2025-01-10 02:35 | NUR ---
LAB NNOTIFIED NURSE OF GRAM + [facility] NOTIFIED AND NO NEW ORDERS AT THIS TIME. PT ASYMPTOMATIC. CALL LIGHT IN REACH
--- NOTE | 2025-01-10 03:45 | NUR ---
DIGITAL ADVISOR SUMMARY VSS. ALERT AND OEINTED. COOPERATIVE WITH CARE. NO C/O ABD PAIN. NO REPORTED COFFE GROUND EMESIS OR DARK/TARRY STOOLS. IVF/MEDS TOLERATED WELL. UP AD AYALA WITH INSTRUCTIONS TO USE CALL LIGHT IF NEEDS ARRISE. HAS BEEN RESTING QUIETLY WITH FEW INTERRUPTIONS. CALL LIGHT IN REACH, RAILS UP X 2 AND BED IN LOW POSITION FOR SAFETY. LAB CALLED WITH GRAM POSITIVE [facility] RESULTS, NOTIFIED WITH NO NEW ORDERS. WILL CONTINUE TO MONITOR.
[2025-01-10 04:56] LABS: BASOPHILS ABSOLUTE AUTO 0.04 K/mm3 (0.00-0.23); BASOPHILS PERCENT AUTO 1 % (0-2); EOSINOPHILS ABSOLUTE AUTO 0.10 K/mm3 (0.00-0.68); EOSINOPHILS PERCENT AUTO 1 % (0-6); Hematocrit 25.6 % (37.0-53.0); Hemoglobin 8.5 g/dL (13.5-17.5); IMMATURE GRAN ABSOLUTE AUTO 0.03 K/mm3 (0.00-0.10); IMMATURE GRAN PERCENT AUTO 0 % (0-1); LYMPHOCYTES ABSOLUTE AUTO 2.04 K/mm3 (0.84-5.20); LYMPHOCYTES PERCENT AUTO 23 % (21-46); MONOCYTES ABSOLUTE AUTO 1.17 K/mm3 (0.16-1.47); MONOCYTES PERCENT AUTO 13 % (4-13); Mean Corpuscular HGB Conc 33.2 g/dL (31.5-36.5); Mean Corpuscular Volume 95 fL (80-100); NEUTROPHILS ABSOLUTE AUTO 5.46 K/mm3 (1.96-9.15); NEUTROPHILS PERCENT AUTO 62 % (41-73); NRBC ABSOLUTE 0.00 K/mm3 (0.00-0.02); NRBC Auto 0.0 /100 WBC (0.0-0.2); Platelet Count 197 K/mm3 (150-400); RDW Coefficient Variation 15.6 % (11.7-14.2); RDW Standard Deviation 53.7 fL (35.1-46.3)
[2025-01-10 05:18] LABS: Anion Gap 6.0 mmol/L (3-11); Blood Urea Nitrogen 19.0 mg/dL (8-24); CO2, Blood 27.0 mmol/L (21-32); Calcium, Blood 8.6 mg/dL (8.5-10.1); Chloride, Blood 109.0 mmol/L (98-108); Creatinine, Blood 0.81 mg/dL (0.60-1.20); Glucose, Blood 110.0 mg/dL (70-99); Potassium, Blood 4.0 mmol/L (3.5-5.5); Sodium, Blood 138.0 mmol/L (136-145)
--- NOTE | 2025-01-10 07:22 | NUR ---
ASSUMED CARE OF THIS PATIENT AT THIS TIME. PATIENT RESTING WELL IN BED. DENIES NEEDS AT THIS TIME. CHART REVIEWED.
[2025-01-10 07:45] VITALS: BP 118/70
[2025-01-10 14:13] LABS: Hematocrit 27.5 % (37.0-53.0); Hemoglobin 9.1 g/dL (13.5-17.5)
--- NOTE | 2025-01-10 18:50 | NUR ---
END OF SHIFT NOTE. PATIENT A/O X4 ON SHIFT TODAY, IND IN ROOM TO BATHROOM AND WITH MEALS. WAITING ON BLOOD CULTURES RESULTS, WATCHING H/H LEVELS. DENIES N/V OR DARK STOOLS ON THIS SHIFT.
[2025-01-10 19:35] VITALS: BP 119/76
[2025-01-11 03:41] VITALS: BP 97/57
--- NOTE | 2025-01-11 04:44 | NUR ---
SHIFT SUMMARY: PT AOX4, [employer], IND IN THE ROOM. CALLS APPROPRIATELY AND ABLE TO MAKE NEEDS KNOWN. VERY PLEASANT AND COOPERATIVE IN CARE. TOLERATING MEDICATIONS WELL. WAS ABLE TO SLEEP WELL LAST NIGHT WITH SOME MODERATE PAIN, MEDICATED PER EMR. PT DENIES CP AND SOB. NO ACUTE OVERNIGHT EVENTS. PT IN BED SLEEPING, BED IN LWOEST POSITION, CALL LIGHT IN REACH. CONTINUING CARE.
[2025-01-11 04:48] LABS: BASOPHILS ABSOLUTE AUTO 0.03 K/mm3 (0.00-0.23); BASOPHILS PERCENT AUTO 0 % (0-2); EOSINOPHILS ABSOLUTE AUTO 0.10 K/mm3 (0.00-0.68); EOSINOPHILS PERCENT AUTO 1 % (0-6); Hematocrit 26.1 % (37.0-53.0); Hemoglobin 8.7 g/dL (13.5-17.5); IMMATURE GRAN ABSOLUTE AUTO 0.03 K/mm3 (0.00-0.10); IMMATURE GRAN PERCENT AUTO 0 % (0-1); LYMPHOCYTES ABSOLUTE AUTO 1.71 K/mm3 (0.84-5.20); LYMPHOCYTES PERCENT AUTO 18 % (21-46); MONOCYTES ABSOLUTE AUTO 1.54 K/mm3 (0.16-1.47); MONOCYTES PERCENT AUTO 16 % (4-13); Mean Corpuscular HGB Conc 33.3 g/dL (31.5-36.5); Mean Corpuscular Volume 95 fL (80-100); NEUTROPHILS ABSOLUTE AUTO 6.23 K/mm3 (1.96-9.15); NEUTROPHILS PERCENT AUTO 65 % (41-73); NRBC ABSOLUTE 0.00 K/mm3 (0.00-0.02); NRBC Auto 0.0 /100 WBC (0.0-0.2); Platelet Count 196 K/mm3 (150-400); RDW Coefficient Variation 15.6 % (11.7-14.2); RDW Standard Deviation 52.9 fL (35.1-46.3)
[2025-01-11 05:12] LABS: Alanine Aminotransfer (ALT/SGP 15.0 U/L (12-78); Albumin, Blood 3.1 g/dL (3.4-5.0); Albumin/Globulin Ratio 1.2 (0.8-1.8); Anion Gap 9.0 mmol/L (3-11); Aspartate Aminotrans (AST/SGOT 10.0 U/L (12-37); Bilirubin, Total 0.3 mg/dL (0.1-1.0); Blood Urea Nitrogen 12.0 mg/dL (8-24); CO2, Blood 26.0 mmol/L (21-32); Calcium, Blood 8.8 mg/dL (8.5-10.1); Chloride, Blood 107.0 mmol/L (98-108); Creatinine, Blood 0.87 mg/dL (0.60-1.20); Globulin, Blood 2.6 g/dL (2.2-4.0); Glucose, Blood 114.0 mg/dL (70-99); Potassium, Blood 3.7 mmol/L (3.5-5.5); Sodium, Blood 138.0 mmol/L (136-145); Total Protein, Blood 5.7 g/dL (6.4-8.2)
[2025-01-11 07:06] VITALS: BP 108/66
[2025-01-11] MEDS ORDERED: PANT40 (13:51)
[2025-01-11] MEDS ORDERED: VISBIOME 112.51 EACH PO (13:51)
[2025-01-11] MEDS ORDERED: AMOCLA875 PO (13:52)
--- NOTE | 2025-01-11 14:30 | NUR ---
Patient discharged home with spouse. All belongings bagged and in patient possession upon discharge. Education/instructions discussed and given to patient, new prescriptions faxed to [facility] per patient preference. Patient transported via wheelchair to front entrance.
== END 2025-01-11 14:15 | disposition home or self-care (01) | DRG 871 ==
LOC: ER 14:49 → MEDS 21:57 → ENPENDDIS 01-11 12:55 → MEDS 01-11 14:15
PROVIDERS: Physician Assistant; Student in an Organized Health Care Education/Training Program; Surgery; ADMIT Internal Medicine
PROC: 3E03329 Introduction of Other Anti-infective into Peripheral Vein, Percutaneous Approach (ICD-10-PCS; 2025-01-08)
PROC: 0DB78ZX Excision of Stomach, Pylorus, Via Natural or Artificial Opening Endoscopic, Diagnostic (ICD-10-PCS; 2025-01-09)
PROC: 0DB98ZX Excision of Duodenum, Via Natural or Artificial Opening Endoscopic, Diagnostic (ICD-10-PCS; principal; 2025-01-09 09:00)
DX: A41.9 Sepsis, unspecified organism (principal); J18.9 Pneumonia, unspecified organism; K26.4 Chronic or unspecified duodenal ulcer with hemorrhage; E87.1 Hypo-osmolality and hyponatremia; E87.20 Acidosis, unspecified; I10 Essential (primary) hypertension; R65.20 Severe sepsis without septic shock; E03.9 Hypothyroidism, unspecified; G40.909 Epilepsy, unspecified, not intractable, without status epilepticus; E78.5 Hyperlipidemia, unspecified; N40.0 Benign prostatic hyperplasia without lower urinary tract symptoms; E86.0 Dehydration; D64.9 Anemia, unspecified; E11.65 Type 2 diabetes mellitus with hyperglycemia; G25.81 Restless legs syndrome; J45.909 Unspecified asthma, uncomplicated; J47.9 Bronchiectasis, uncomplicated; M45.9 Ankylosing spondylitis of unspecified sites in spine; Z87.442 Personal history of urinary calculi; Z87.891 Personal history of nicotine dependence; Z79.51 Long term (current) use of inhaled steroids; Z79.84 Long term (current) use of oral hypoglycemic drugs; Z98.890 Other specified postprocedural states; Z79.890 Hormone replacement therapy; Z79.899 Other long term (current) drug therapy
CPT/HCPCS: 36415; 71046; 80048; 80053; 82947; 83605; 84484; 85014; 85018; 85025; 86850; 86900; 86901; 87040; 87077; 88305; 88342; 93005; 93010; 94640; 94664; 94760; 94762; 96361; 96365; 96375; 99285-25; A9270; J0456; J0696; J2405; J2470; J2704; J7030; J7050; J7120

== ENCOUNTER 2025-01-31 03:05 | Day surgery (SDC) | payer MEDICARE ==
[~2025-01-31 03:05] MED LIST changes: +AMOCLA875 PO; +PANT40; +POTASSIUM GLUCO90 M1 PO
[2025-01-31 15:08] VITALS: BP 124/55
== END 2025-01-31 17:37 | disposition home or self-care (01) ==
LOC: ATC 03:05
DX: M45.0 Ankylosing spondylitis of multiple sites in spine (principal)
CPT/HCPCS: 96413; 96415; J7050; Q5104

== ENCOUNTER 2025-03-10 12:59 | Day surgery (SDC) | payer MEDICARE ==
[2025-03-10] VITALS (24 sets, daily range): BP systolic 86–137; BP diastolic 50–82
[2025-03-10] MEDS ORDERED: Ipratropium/Albuterol SulF 2.5-0.5MG/3 ML Amp INH ONE (14:00)
--- NOTE | 2025-03-10 14:19 | NUR ---
Ambulatory in Day SurgeryPre-Op teaching done. Pt verbalizes understanding. History, Chart, Medications and Allergies reviewed before start of procedure.Patient confirms NPO status and agrees with scheduled surgery. Patient States Post-Procedure ride home has been arranged.
--- NOTE | 2025-03-10 14:36 | NUR ---
03/10/25 1436 Makayla Bright CONFIRMED AND REVIEWED H&P, MEDCICATIONS, ALLERGIES, MEDICAL HISTORY, RESPIRATORY HISTORY, VITAL SIGNS, 3-LEAD EKG, CONSENTS, AND PHYSICIAN ORDERS. PATIENT CONFIRMS NPO STATUS AND AGREES WITH SCHEDULED PROCEDURE. MONITOR INTACT WITH CONTINUOUS PULSE OXIMETRY, CAPNOGRAPHY, 3-LEAD EKG, INTERMITTENT BP. SUPPLEMENTAL O2 TO BE TITRATED THROUGHOUT PROCEDURE TO MAINTAIN O2 SATURATION ABOVE 90%. PATIENT DETERMINED TO BE ASA APPROPRIATE FOR PROPOFOL SEDATION PRIOR TO START OF PROCEDURE BY DR. TRAORE
== END 2025-03-10 23:00 | disposition home or self-care (01) ==
LOC: ORSCMMR 12:59 → ORD 13:00 → ORSCMMR 13:00
PROVIDERS: Surgery
PROC: 0DJD8ZZ Inspection of Lower Intestinal Tract, Via Natural or Artificial Opening Endoscopic (ICD-10-PCS; principal; 2025-03-10 13:00)
PROC: 0DJ08ZZ Inspection of Upper Intestinal Tract, Via Natural or Artificial Opening Endoscopic (ICD-10-PCS; principal; 2025-03-10 13:00)
DX: K27.9 Peptic ulcer, site unspecified, unspecified as acute or chronic, without hemorrhage or perforation (principal); Z12.11 Encounter for screening for malignant neoplasm of colon; K64.8 Other hemorrhoids; I10 Essential (primary) hypertension; E78.5 Hyperlipidemia, unspecified; E03.9 Hypothyroidism, unspecified; N40.0 Benign prostatic hyperplasia without lower urinary tract symptoms; G40.909 Epilepsy, unspecified, not intractable, without status epilepticus; Z79.84 Long term (current) use of oral hypoglycemic drugs; Z79.899 Other long term (current) drug therapy
CPT/HCPCS: 43235; G0121; 82947; J2704; J7120

== ENCOUNTER 2025-03-28 01:45 | Day surgery (SDC) | payer MEDICARE ==
[2025-03-28 08:00] VITALS: BP 126/65
== END 2025-03-28 10:22 | disposition home or self-care (01) ==
LOC: ATC 01:45
DX: M45.0 Ankylosing spondylitis of multiple sites in spine (principal); K27.9 Peptic ulcer, site unspecified, unspecified as acute or chronic, without hemorrhage or perforation; D64.9 Anemia, unspecified; J47.9 Bronchiectasis, uncomplicated; D84.9 Immunodeficiency, unspecified; Z88.0 Allergy status to penicillin
CPT/HCPCS: 96413; 96415; J7050; Q5104